=== PATIENT | male | born 1960 | race Caucasian/White ===

== ENCOUNTER 2016-06-03 11:59 | Inpatient (IN) | payer OTHER ==
--- NOTE | ~2016-06-03 | HP ---
History And Physical [place] [id number] [facility] [place]. [address] NAME: JARVIS HOOPER : 58 STATUS : ADM IN PAT#: [id number] AGE: 56 ADM/REG DATE : 06/03/16 MR#: [id number] REPORT SERV DATE: 06/03/16 DICTATED BY: DATE: REPORT STATUS : Draft TRANSCRIBED BY: MODL DATE: 06/03/16 DATE OF ADMISSION: 06/03/2016 REASON FOR ADMISSION: Severe dysphagia secondary to locally advanced esophageal cancer. Admission for J-tube and Port-A-Cath placement. POINT OF ENTRY: Direct admission from [facility] office, Dr. Marek Harris. PRIMARY CARE PHYSICIAN: Alternate providers at [facility]. PRIMARY ONCOLOGIST: Dr. Marek Harris, [facility]. PRIMARY CONTRACT CLERK: Dr. Isha Frye. PRIMARY UROLOGIST: Dr. Wood. HISTORY OF PRESENT ILLNESS: The patient's history was obtained through careful interview with the patient and his spouse coupled with review of office note, dated 05/31/2016, provided by Dr. Marek Harris at [facility]. Briefly, the patient is a 56-year-old male who is under the outpatient care of Dr. Marek Harris for evaluation and management of malignant neoplasm of the esophagus, new diagnosis. The patient underwent EGD on 05/28/2016, and an obstructing mass was found in the lower esophagus. Mass was biopsied and pathology returned as a moderately differentiated adenocarcinoma. Additional testing revealed HER-2/gabino positive. CT scan of the chest, abdomen, and pelvis were also performed on 05/28/2016. The esophageal mass was again noted along with indeterminate small pulmonary nodules of less than 1 cm and lymph node enlargement in lower chest and upper abdomen. Per review of [facility] notes, the patient has suffered from severe progressive dysphagia over at least one month and weight loss of approximately 20 pounds. The patient is barely able to take in a liquid diet. The patient was admitted to [facility] today for further evaluation and treatment to include placement of J-tube and Port-A-Cath. The patient reported progressive difficulty swallowing for at least one month. Swallowing at times is described as painful. The patient has also had increased symptoms of acid reflux. The patient stated that he has lost a significant amount of weight over the past month including a 10-pound weight loss within the past week. The patient reports his maximum weight to be 205 pounds one month ago, and weight today is 178 pounds. He is unable to consume solid foods and at times struggles to take in liquids. The patient History And Physical [address] [place]. [address] NAME: JARVIS HOOPER : 58 STATUS : ADM IN [facility]#: [id number] AGE: 56 ADM/REG DATE : 06/03/16 MR#: [id number] REPORT SERV DATE: 06/03/16 DICTATED BY: DATE: REPORT STATUS : Draft TRANSCRIBED BY: MODL DATE: 06/03/16 complains of mild intermittent nausea with occasional vomiting. The patient denies any recent choking episodes. REVIEW OF SYSTEMS: CONSTITUTIONAL: Positive for unintentional weight loss over past month. Maximum weight 205 pounds, the patient now weighing 178 pounds. Negative for fever, sweats, and chills. EYES: Positive for glasses. No blurred or double vision. No glaucoma. No cataracts. HEENT: Positive for chronic headache x2 weeks. No hearing loss. CARDIOVASCULAR: Positive for murmur, remote. Negative for chest pain, palpitations, syncope, and edema. RESPIRATORY: Positive for COPD with chronic bronchitis to include chronic productive cough and wheezing. No history of hemoptysis, shortness of breath, or pneumonia. GASTROINTESTINAL: Positive for intermittent nausea, last vomiting three days ago. Negative for abdominal pain and diarrhea. Last bowel movement was on Friday, status post bowel prep for colonoscopy. Positive for dysphagia, severe x1 month. MUSCULOSKELETAL: Positive for generalized joint pain. The patient relates to arthritis. INTEGUMENT: Negative for rash and nonhealing wounds. NEUROLOGIC: Positive for generalized weakness secondary to minimal p.o. intake. Negative for gait disturbance, stroke, TIA, and seizure. HEMATOLOGIC: Negative for anemia. PSYCHIATRIC: Positive for depression and anxiety. : Negative for dysuria and hematuria. Positive for history of nephrolithiasis. ENDOCRINE: Negative for diabetes and thyroid disease. ALLERGIES: NEGATIVE FOR ALLERGIES TO FOOD AND LATEX. PER REVIEW OF [facility] NOTE, NO KNOWN DRUG ALLERGIES. HEALTH MAINTENANCE: Flu and pneumonia vaccines are up to date. CODE STATUS: The patient expressed wishes to be a full code. HOME MEDICATIONS: Awaiting pharmacy reconciliation of home medication list. SOCIAL HISTORY: The patient resides with significant other. He has one biological daughter. He is an active tobacco user having smoked for approximately 30 years up until 2005. The patient smoked approximately two packs per day and is now smoking between one-half and one pack per day. The patient reports rare use of alcohol. 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 FAMILY HISTORY: The patient's mother is 73 years old with multiple health comorbidities. The patient's father at age 73 with a history of small cell lung cancer. The patient's paternal grandfather had a history of prostate cancer. Maternal grandmother had a history of unknown cancer. The patient has two siblings, in general good health. PAST MEDICAL HISTORY: 1. Malignant neoplasm of esophagus, new diagnosis as of 05/31/2016. 2. Severe dysphagia. History And Physical [address] [address] NAME: JARVIS HOOPER : 58 STATUS : ADM IN [facility]#: [id number] AGE: 56 ADM/REG DATE : 06/03/16 MR#: [id number] REPORT SERV DATE: 06/03/16 DICTATED BY: DATE: REPORT STATUS : Draft TRANSCRIBED BY: MODL DATE: 06/03/16 3. Depression and anxiety. 4. Unintentional weight loss. 5. Chronic bronchitis/COPD. 6. Diverticulitis. 7. Kidney stones. PAST SURGICAL HISTORY: 1. Right hand repair secondary to injury. 2. Two back surgeries, diskectomies in 1996 and approximately 12 years ago. 3. Kidney stone retrieval, 2009. 4. Tonsillectomy at age 15. ASSESSMENT AND PLAN: 1. Severe dysphagia. This is secondary to new diagnosis of an obstructing mass in the lower esophagus. Pathology returned as moderately differentiated adenocarcinoma. The patient continues to have dysphagia to solids and at times liquids. The patient reports painful swallowing at times. The patient is pending placement of J tube, so that he may begin tube feedings prior to treatment of esophageal cancer. The patient will receive clear liquids as tolerated, and then tube feedings will be started once PEG tube has been placed. 2. Unintentional weight loss. This is secondary to inability to tolerate solid food secondary to severe dysphagia. The patient has had significant weight loss over the past month having lost 10 pounds within the last week. Nutrition has been consulted for tube feeding and flush recommendations once J tube has been placed. Social Work has also been consulted for home health care at discharge to manage J tube and tube feedings. 3. Depression/anxiety. Per the patient, these conditions are controlled on home medications. Medication list is pending. The patient unable to recall names of home medications. These medications will be started inpatient once list as reconciled. 4. Esophageal cancer. This is a new diagnosis as of 05/31/2016. The patient is under the care of Dr. Harris at [facility]. Per review of [facility], this is an aggressive lower esophageal malignancy at least locally advanced disease. Two possible strategies for treatment are pending at this time to include neoadjuvant chemo radiation therapy followed by surgery for local disease versus palliative chemotherapy and radiation given sequentially for metastatic disease. 5. Chronic obstructive pulmonary disease/chronic bronchitis. The patient is up to date on influenza and pneumonia vaccine. The patient follows up with alternate providers at [facility]. The patient states he uses his medication to include a "puffer" only as needed. There were no signs or symptoms of acute exacerbation upon admission. PHYSICAL EXAMINATION: VITAL SIGNS: Temperature 99.4, pulse 69, blood pressure 127/77, respirations 20, oxygen saturation 96% on room air. NEUROLOGIC: The patient is alert with no focal deficits. GENERAL: The patient is a good health historian. Cooperative, awake, alert, and oriented x3. No apparent distress. History And Physical [address] [address] NAME: JARVIS HOOPER : 58 STATUS : ADM IN [facility]#: [id number] AGE: 56 ADM/REG DATE : 06/03/16 MR#: [id number] REPORT SERV DATE: 06/03/16 DICTATED BY: DATE: REPORT STATUS : Draft TRANSCRIBED BY: MODL DATE: 06/03/16 NECK: Posterior oropharynx is visible. No lesions or exudate. No lymphadenopathy. CHEST: No tenderness to palpation. LUNGS: Normal work of breathing at rest. Distant at bilateral bases. No wheezes. No rhonchi. CARDIOVASCULAR: Regular rate and rhythm. No murmurs, rubs, or gallops. ABDOMEN: Soft and nontender. No distention. Bowel sounds present in all quadrants. No organomegaly. EXTREMITIES: No edema to bilateral lower extremities. PSYCH: Normal affect and demonstrates good decision-making ability. The care of this patient will be transferred to the service of Dr. Josh Davis. NAPOLEON/STEVAN Colleen De La Torre NP-C / [id number] CC: Josh Davis II, MD
--- NOTE | ~2016-06-03 | DS ---
Discharge Summary [place] [id number] [facility] [place]. [address] NAME: JARVIS HOOPER : 58 STATUS : DIS IN PAT#: [id number] AGE: 56 ADM/REG DATE : 06/03/16 MR#: [id number] REPORT SERV DATE: 06/13/16 DICTATED BY: DATE: REPORT STATUS : Draft TRANSCRIBED BY: MODL DATE: 06/12/16 ADMISSION DATE: 06/03/2016 DISCHARGE DATE: 06/12/2016 DISCHARGE DIAGNOSES: 1. Constipation. 2. Severe dysphagia. 3. Unintentional weight loss. 4. Depression/anxiety. 5. Chronic obstructive pulmonary disease/chronic bronchitis. 6. Metastatic esophageal cancer. CONSULTATIONS: 1. Ulises Horton M.D., Surgery. 2. Bobo Adhikari M.D., Radiation Oncology. PERTINENT TESTS AND PROCEDURES: 1. Chest x-ray, 06/03/2016. Impression: No focal airspace consolidation or pleural effusion. No evidence of acute cardiopulmonary disease. 2. Chest x-ray, 06/05/2016. Impression: No pneumothorax postop. 3. PET scan whole body, 06/06/2016. Impression:. a. 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 The largest pulmonary nodule is 0.7 cm with mild FDG avidity. Other nodules are below resolution of PET. b. Pneumoperitoneum most likely due to recent J-tube insertion within last 48 hours. c. Three-vessel coronary artery atherosclerosis and/or stenting. d. Upper lobe predominant COPD with mild bibasilar atelectasis. e. Sigmoid colonic diverticulosis without diverticulitis. 4. Right subclavian Port-A-Cath placement with fluoroscopy and jejunal feeding tube placement, 06/05/2016. HOSPITAL COURSE: Please refer to history and physical dated 06/03/2016 provided by Colleen De La Torre, Nurse Practitioner, for complete details pertaining to the patient's initial presentation upon admission and health history. Please also refer to consultations dated 06/04/2016 and 06/07/2016, provided by Dr. Ulises Horton, Surgery, and Dr. Bobo Adhikari, Radiation Oncology. Please also refer to interim discharge summary dated 06/10/2016 provided by Allison Butt, Nurse Practitioner, for summary of events occurring between 06/03/2016 and 06/10/2016. Briefly, the patient is a 56-year-old male with a new diagnosis of an obstructing mass in the lower esophagus. Biopsy returned as moderately differentiated adenocarcinoma. The Discharge Summary [facility] [address] [place] [address] NAME: JARVIS HOOPER : 58 STATUS : DIS IN PAT#: [id number] AGE: 56 ADM/REG DATE : 06/03/16 MR#: [id number] REPORT SERV DATE: 06/13/16 DICTATED BY: DATE: REPORT STATUS : Draft TRANSCRIBED BY: MODL DATE: 06/12/16 patient is under the outpatient care of Dr. Marek Harris at [facility]. The patient was referred to [facility] for direct admission for management of severe progressive dysphagia in the setting of newly diagnosed metastatic esophageal cancer while waiting treatment to include placement of J-tube and Port-A-Cath. 1. Severe dysphagia. This is secondary to a new diagnosis of obstructing mass in the lower esophagus. Pathology returned as moderately differentiated adenocarcinoma. The patient can only tolerate a very small amount of thin liquids and small pills per oral intake. The patient had J-tube placed on 06/06/2016 and has now met goal rate tube feedings. 2. Unintentional weight loss. This is secondary to severe dysphagia related to metastatic esophageal cancer. The patient is unable to maintain nutritional status orally secondary to obstructing esophageal mass. The patient is now on tube feedings. The patient is receiving Osmolite 1.5 three cans delivered at 63 mL/h x12 hours via pump nightly in addition to three cans of Osmolite daily per bolus feed. Nutrition evaluated the patient during this admission and the patient was found to have severe malnutrition in the setting of chronic illness. The patient had insufficient energy intake less than 75% for one month in addition to greater than 5% unintentional weight loss within one month. 3. Constipation. This was likely related to recent surgery. The patient responded well to bowel regimen, and constipation is now resolved. The patient was educated on continuing outpatient bowel regimen at home to avoid constipation. 4. COPD/chronic bronchitis. The patient had no signs or symptoms of acute exacerbation during this admission. 5. Depression/anxiety. The patient condition remained baseline throughout this admission. The patient received Klonopin 0.5 mg p.o. three times daily and as needed, and was provided a two-week supply until he can return to his primary care office in June for re- evaluation and prescription refills. 6. Metastatic esophageal cancer. This is a new diagnosis. The patient is under the care of Dr. Harris at [facility] and Bobo Adhikari, Radiation Oncology. The patient is to start radiation therapy on an outpatient basis tomorrow. DISCHARGE CONDITION: At the time of discharge, the patient is hemodynamically stable. DISCHARGE DIET: P.O. liquids as tolerated. J-tube feedings as listed above. DISCHARGE MEDICATIONS: 1. Vitamin C 100 mg chewable tablet p.o. daily. 2. Celexa 20 mg tablet, take 40 mg p.o. daily. 3. Reglan 10 mg p.o. every 8 hours as needed x2 weeks. 4. Tylenol 325 mg tablet, take 650 mg p.o. every 4 hours as needed for pain. 5. Milk of magnesia 30 mL as needed at bedtime. 6. Zofran 8 mg tablet p.o. every 8 hours as needed. 7. Mylicon 80 mg p.o. every 6 hours as needed. 8. Klonopin 0.5 mg tablet p.o. three times a day as needed for anxiety. The patient was provided with a two-week prescription to cover days before followup visit with primary care physician. 9. Multiple vitamin one tablet p.o. daily. Discharge Summary [address] [address] NAME: JARVIS HOOPER : 58 STATUS : DIS IN PAT#: [id number] AGE: 56 ADM/REG DATE : 06/03/16 MR#: [id number] REPORT SERV DATE: 06/13/16 DICTATED BY: DATE: REPORT STATUS : Draft TRANSCRIBED BY: MODL DATE: 06/12/16 10.MiraLAX 17 g p.o. daily, hold for diarrhea. DISCHARGE INSTRUCTIONS: 1. Follow up with primary care physician, Dr. Suni Silva at [facility] on 06/24/2016 at 2:00 p.m. 2. The patient is to follow up with Dr. Harris, [facility], on 06/18/2016 at 1:00 p.m. The patient and his spouse were instructed to return to the emergency department for any acute onset of fever 100.4 degrees Fahrenheit or higher lasting more than one hour, any acute changes with the newly placed J-tube to include inability to flush or administer feedings, increased shortness of breath, intractable abdominal pain, nausea, vomiting, or any additional concerns that are deviations from his baseline health status at the time of this discharge. PRIMARY CARE PHYSICIAN: Marek Harris M.D., [facility]. PRIMARY RADIATION ONCOLOGIST: Bobo Adhikari M.D. JWH/STEVAN AIME Ibarra / [id number] CC: Josh Davis II, MD
--- NOTE | ~2016-06-03 | IDS ---
Interim Discharge Summary [facility] [address] [place]. [address] NAME: JARVIS HOOPER : 58 STATUS : ADM IN [facility]#: [id number] AGE: 56 ADM/REG DATE : 06/03/16 MR#: [id number] REPORT SERV DATE: 06/10/16 DICTATED BY: JEWEL BUTT DATE: 06/10/16 REPORT STATUS : Draft TRANSCRIBED BY: MODL DATE: 06/10/16 ADMISSION DATE: 06/03/2016 DISCHARGE DATE: DATE OF INTERIM NOTE: Date of interim note is covering 06/04/2016. INTERIM DIAGNOSES: 1. Severe dysphagia, secondary to #3. 2. Unintentional weight loss, secondary #3. 3. Esophageal cancer. 4. Depression and anxiety. 5. Tobacco abuse. 6. History of chronic obstructive pulmonary disease/chronic bronchitis. CONSULTATIONS: 1. Surgery, Dr. Horton on 06/04/2016. 2. Radiation Oncology, Dr. Adhikari on 06/07/2016. IMAGIN. Chest x-ray on 06/03/2016, impression, no evidence of acute cardiopulmonary disease. 2. Chest x-ray, on 06/05/2016, impression, minimal atelectasis in the left lung base, due to low volume levels. 3. PET scan on 06/06/2016, impression, mass suggestive of stage IV gastroesophageal carcinoma with 5 x 4 cm GE junction with gastric cardia mass, multiple FDG avid, celiac, and retroperitoneal lymph nodes, with numerous bilateral subcentimeter pulmonary nodules. The largest pulmonary nodule is 0.7 cm with mild FDG activity or avidity. Other nodules are below the resolution of PET. 4. On 06/05/2016, right subclavian Port-A-Cath placement with fluoroscopy and jejunal feeding tube placement by Dr. Horton. COURSE OF HOSPITAL STAY: Please refer to history and physical dictated by Colleen De La Torre, nurse practitioner on 06/03/2016, as well as consultation note by Dr. Horton, and Dr. Adhikari. This patient is a 56-year-old gentleman, who presents with a history of esophageal cancer. He is under the care Dr. Harris. The patient was admitted for severe progressive dysphagia. Dr. Horton was consulted for J-tube and Port-A-Cath placement. 1. Severe dysphagia secondary to #3. The patient has had difficulty swallowing over the past month. He does state that he has had approximately 10 pound weight loss over the past week. The patient has been able to take only very small sips of liquid, unable to make calorie intake. Dr. Horton was consulted to see the patient regarding J-tube placement and Port-A-Cath placement. He did undergo the procedure on 06/05/2016. 2. Unintentional weight loss, secondary to #3. J-tube was placed on 06/05/2016. Feedings have progressed very slowly, due to bloating and abdominal discomfort. At this time, the patient feedings are at 30 mL an hour. Nutrition has been reconsulted to see regarding nocturnal feeds versus bolus feeds. The patient has been adamant regarding being able to discharge home as quickly as possible. This was reviewed with Venus Martinez Interim Discharge Summary [address] [place]. [address] NAME: JARVIS HOOPER : 58 STATUS : ADM IN [facility]#: [id number] AGE: 56 ADM/REG DATE : 06/03/16 MR#: [id number] REPORT SERV DATE: 06/10/16 DICTATED BY: JEWEL BUTT DATE: 06/10/16 REPORT STATUS : Draft TRANSCRIBED BY: STEVAN DATE: 06/10/16 Clifford nurse. The complains of bloating, and has decreased due to starting Reglan and simethicone. Again at this time, the patient is tolerating tube feeds at 30 mL an hour. This will be increased every eight hours depending on nutrition's recommendation. Per Dr. Horton, okay to discharge home and continue increase tube feeds as tolerated. 3. Esophageal cancer. The patient is under the care of Dr. Harris. The patient did undergo a PET-CT which is noted above on 06/06/2016. It is planned for palliative chemo as well as radiation. The patient has had evaluation by Dr. Adhikari. Radiation may begin this afternoon. 4. Depression and anxiety. The patient has been continued on home medications and is at baseline. 5. Tobacco abuse. The patient does state that he had continued to smoke, he has discontinued to use, he is using a nicotine patch at this time. 6. History of COPD/chronic bronchitis. The patient has remained stable without difficulty. DISPOSITION: The patient has been working with dependency case manager regarding supplies and Home Health. This has been arranged, the patient has feedings and pump which have been delivered. He will follow up outpatient with Dr. Harris upon discharge, as well as Dr. Adhikari. Discharge home within the next day or two. GIA/STEVAN Jewel Butt NP / [id number]
--- NOTE | ~2016-06-03 | CONSULT ---
Radiation Oncology Consult [address] [address] NAME: JARVIS SANDS : 58 STATUS : ADM IN PAT#: [id number] AGE: 56 ADM/REG DATE : 06/03/16 MR#: [id number] REPORT SERV DATE: 06/07/16 DICTATED BY: LOI ADHIKARI DATE: 06/07/16 REPORT STATUS : Draft TRANSCRIBED BY: MODL DATE: 06/07/16 RADIATION ONCOLOGY CONSULTATION CHIEF COMPLAINT: Esophageal carcinoma. HISTORY OF PRESENT ILLNESS: Mr. Sands is a pleasant 56-year-old gentleman, who presented with a 20-pound weight loss and progressive dysphagia. EGD completed 05/28/2016 showed an obstructing mass in the lower esophagus. Biopsy returned as moderately differentiated adenocarcinoma. CTs of the chest, abdomen, and pelvis on 05/28/2016 showed the esophageal mass with indeterminate small pulmonary nodules and lymph node enlargement in the upper abdomen. He was seen by Dr. Harris, who recommended a PET-CT and was subsequently hospitalized for J-tube placement. This has now been completed along with the PET-CT. PET- CT has not been read at this time, but upon my review shows a large GE junction mass with upper abdominal lymphadenopathy and a questionable lesion in the liver on the FDG MIP. I will await the final read from Radiology as to whether this is concerning. Symptomatically, Mr. Sands is resting comfortably and is currently tolerating tube feeds at a fairly slow rate. PAST MEDICAL HISTORY: Unremarkable. ALLERGIES: NO KNOWN DRUG ALLERGIES. MEDICATIONS: Medication list reviewed with the patient including the patient's chart. SOCIAL HISTORY: The patient is . Lives in [place]. He has recently quit smoking with this diagnosis after smoking one pack a day for 30 years. He does drink alcohol on a regular basis. FAMILY HISTORY: Small cell lung cancer in father. Paternal grandfather with prostate cancer. FULL REVIEW OF SYSTEMS: A comprehensive review of systems was discussed in detail. Mr. Sands' pertinent positives and negatives are included above in the history of present illness. PHYSICAL EXAMINATION: GENERAL: The patient is awake, alert, oriented, in no acute distress. VITAL SIGNS: Afebrile. Vital signs stable. HEENT: Extraocular movements are intact. Sclerae anicteric. Oral cavity is benign without erythema. NECK: Supple. No thyromegaly. LYMPHATICS: No cervical, supraclavicular, or axillary lymphadenopathy palpated. LUNGS: Clear to auscultation bilaterally. Appropriate work of breathing. HEART: Regular rate. Normal sinus rhythm. No murmurs, rubs, or gallops. ABDOMEN: Soft, nontender, nondistended. No hepatosplenomegaly. No apparent hernias. Radiation Oncology Consult [address] [address] NAME: JARVIS SANDS : 58 STATUS : ADM IN PAT#: [id number] AGE: 56 ADM/REG DATE : 06/03/16 MR#: [id number] REPORT SERV DATE: 06/07/16 DICTATED BY: LOI ADHIKARI DATE: 06/07/16 REPORT STATUS : Draft TRANSCRIBED BY: STEVAN DATE: 06/07/16 EXTREMITIES: No cyanosis, clubbing, or edema. SKIN: No rashes. No obvious jaundice. LABORATORIES AND OTHER DATA: Imaging and pathology as described above showing a locally advanced esophageal adenocarcinoma. ASSESSMENT/PLAN: A 56-year-old gentleman with at least a locally advanced esophageal adenocarcinoma. Official read from the PET-CT is pending. No obvious metastatic disease is noted per my review, although there is some suspicious activity in the anterior apex of the liver and in a few thoracic vertebral bodies. Final radiograph agreed to be necessary for staging. If Mr. Sands is deemed to be nonmetastatic, I would recommend concurrent chemotherapy and radiation treating the areas of gross disease including the GE junction mass and the upper abdominal lymphadenopathy to 5040 cGy in 28 fractions with concurrent chemotherapy. If he is found to have metastatic disease, I agree a short course of palliative radiation therapy would help with his dysphagia and can be followed by systemic chemotherapy. I plan to follow up with Mr. Sands early next week to make final treatment recommendations and will be in contact with Dr. Harris. I discussed both treatment approaches in detail with Mr. Sands and his and will stay in touch as we await final staging. JOYCE/STEVAN Loi Adhikari M.D. / [id number] CC: Itz Carrion MD NO PCP Marek Harris M.D.
--- NOTE | ~2016-06-03 | OP ---
Record Of Operation [facility] [address] [place]. [address] NAME: JARVIS HOOPER : 58 STATUS : ADM IN [facility]#: [id number] AGE: 56 ADM/REG DATE : 06/03/16 MR#: [id number] REPORT SERV DATE: 06/06/16 DICTATED BY: RONNY BRADSHAW III DATE: 06/05/16 REPORT STATUS : Draft TRANSCRIBED BY: MODL DATE: 06/05/16 DATE OF PROCEDURE: 06/03/2016 PREOPERATIVE DIAGNOSES: Obstructing adenocarcinoma of the distal esophagus with malnutrition and need for chronic IV access for chemotherapy. POSTOPERATIVE DIAGNOSES: Obstructing adenocarcinoma of the distal esophagus with malnutrition and need for chronic IV access for chemotherapy. PROCEDURE: Right subclavian Port-A-Cath placement with fluoroscopy and jejunal feeding tube placement. SURGEON: Ronny Bradshaw M.D. ANESTHESIA: General with intubation. COMPLICATIONS: None. ESTIMATED BLOOD LOSS: Less than 5 mL. SPECIMENS: None. DRAINS: None. LAP AND SPONGE COUNT: Correct x3. BRIEF HISTORY: This 56-year-old male was recently diagnosed with a large obstructing cancer of the distal esophagus. His workup showed no evidence for metastatic disease. It was felt that neoadjuvant chemotherapy and radiation therapy were indicated. It was felt that Port-A Cath placement was also indicated to allow for chronic IV access for chemotherapy and jejunal feeding tube placement was indicated to allow for enteral nutrition as the patient was nearly completely obstructed. These procedures, the risks, benefits, and alternatives, including not limited to the risk for bleeding, infection, pneumothorax, air embolus, pericardial tamponade, failure of the port to function, infection of the port, or subclavian vein thrombosis requiring removal the port, dislodgement of the Port-A-Cath tubing requiring extraction, and unforeseen complications including deep venous thrombosis, pulmonary embolus, myocardial infarction, stroke, pneumonia, and , were fully and completely explained to the patient prior to surgery. The risk for enterotomy or injury to any abdominal structure, postop small bowel obstruction, ileus, failure of the feeding tube to function, infection of the tube or drainage around the tube or occlusion of the tube requiring revision or replacement, and unforeseen complications including deep venous thrombosis, pulmonary embolus, myocardial infarction, stroke, pneumonia, and , were fully and completely explained to the patient's family prior to surgery. Their questions were answered. They understood the risks and agreed to surgery as planned. DESCRIPTION OF PROCEDURE: After being properly identified and after discussing risks of Record Of Operation [place] [id number] [facility] [address] [place] [address] NAME: JARVIS HOOPER : 58 STATUS : ADM IN PAT#: [id number] AGE: 56 ADM/REG DATE : 06/03/16 MR#: [id number] REPORT SERV DATE: 06/06/16 DICTATED BY: RONNY BRADSHAW III DATE: 06/05/16 REPORT STATUS : Draft TRANSCRIBED BY: STEVAN DATE: 06/05/16 surgery with the patient's family again in the preoperative area, he was then taken to the operating room and placed in a supine position on the operating room table. General anesthesia was administered. He was intubated without difficulty. The abdomen and chest were prepped and draped sterilely in the usual fashion. After an appropriate "time-out" per JCAHO standards, an 18-gauge needle was used to identify the right subclavian vein. The vein was identified on the first pass of the needle. A guidewire was passed through the needle, and the needle was removed. Fluoroscopy was performed, confirming the tip of the guidewire to be in the correct position in the superior vena cava. A small transverse incision was then made at the exit site of the guidewire from the skin. A subcutaneous infraclavicular pocket was made of the appropriate size for the Port-A-Cath housing. The Port-A-Cath housing and tubing were assembled, flushed with a heparin solution and the tubing cut to the appropriate length. The introducer was then placed over the guidewire. The guidewire and inner dilator were removed. The Port-A-Cath tubing was then placed through the sheath as the sheath was peeled away. This went very smoothly. The Port-A-Cath housing was positioned in the infraclavicular pocket. It was secured in place with 2-0 silk sutures. It was accessed with a Nunez needle and noted to aspirate blood easily. It was then flushed with a heparin solution, noted to flush easily. Repeat fluoroscopy was performed, confirming the tip of the Port-A-Cath tubing to be in the correct position of superior vena cava. Hemostasis was assured. The subcutaneous tissue was closed with a running 3-0 Vicryl suture. The skin was closed with running subcuticular 4-0 Monocryl stitch. The incision was injected with 0.5% Marcaine. Dermabond was applied. We then turned our attention to the abdomen. A small vertical incision was made in the midline of the abdomen midway between the umbilicus and xiphoid process. The incision was continued through the subcutaneous tissue. Hemostasis was controlled with cautery. The incision was continued through the fascia. The abdominal cavity was entered. There was no evidence for carcinomatosis or peritoneal implants. We identified the ligament of Treitz. The proximal jejunum just beyond this was selected for placement of the feeding tube. A #14 Zimbabwean jejunal feeding tube was placed through a separate stab wound to the left of the incision. A 3-0 silk pursestring was then placed on the antimesenteric border of the proximal small bowel which had been selected for placing the feeding tube. A small opening was made in the center of the pursestring, and the feeding tube was passed through this and passed distally. The balloon was inflated. The pursestring was secured. The exit site of the feeding tube from the jejunum was then secured in a Witzel fashion with interrupted 3-0 silk sutures. This new exit site was secured to the underside of the abdominal wall with 3- 0 silk sutures. Upon completion of this, the catheter lay in good position. The small bowel was inspected carefully to be certain it was not twisted or kinked in any way. Hemostasis was assured. The fascia was closed with a running looped #1 PDS suture. Subcutaneous tissue was closed with running 3-0 chromic suture. The skin was closed with running subcuticular 4-0 Monocryl stitch. The incision was injected with 0.5% Marcaine. Dressings were applied. Anesthesia was reversed, and the patient was taken to the recovery room in stable condition, tolerated the procedure well. Chest x-ray is pending in recovery room. The patient will remain in the hospital for postoperative care. APRIL/STEVAN Record [place] [address] [place]. [address] NAME: JARVIS HOOPER : 58 STATUS : ADM IN PAT#: [id number] AGE: 56 ADM/REG DATE : 06/03/16 MR#: [id number] REPORT SERV DATE: 06/06/16 DICTATED BY: RONNY BRADSHAW III DATE: 06/05/16 REPORT STATUS : Draft TRANSCRIBED BY: MODL DATE: 06/05/16 Ronny Bradshaw III, M.D. / [id number] CC: Itz Carrion MD
--- NOTE | ~2016-06-03 | CN ---
Consultation Report [place] [id number] [facility] [place]. [address] NAME: JARVIS HOOPER : 58 STATUS : ADM IN [facility]#: [id number] AGE: 56 ADM/REG DATE : 06/03/16 MR#: [id number] REPORT SERV DATE: 06/04/16 DICTATED BY: RONNY BRADSHAW III DATE: 06/04/16 REPORT STATUS : Draft TRANSCRIBED BY: MODDmitri DATE: 06/04/16 CONSULTATION DATE OF CONSULTATION: 06/04/2016 ATTENDING PHYSICIAN: Marek Harris M.D. REASON FOR CONSULT: 1. Esophageal cancer. 2. Evaluation for surgical management. HISTORY OF PRESENT ILLNESS: We were asked to see this 56-year-old male in the hospital for the above reasons. The patient has been recently diagnosed with a distal adenocarcinoma of the esophagus. The patient complains of severe dysphagia. Over the last month or so, the patient has had difficulty swallowing. He has developed severe dysphagia, which has become progressively worse. This is associated with a 20-pound weight loss over the last month. The patient is now able to tolerate liquids only. The patient has had no nausea or vomiting. He has had no blood per rectum. He has had no other complaints. The patient underwent upper endoscopy last week, which showed a large complete obstructing mass in the distal esophagus. Biopsy confirmed this to be adenocarcinoma. Neoadjuvant chemotherapy and radiation therapy are planned to begin this Friday. PET scan is pending. The patient's recent CT scan shows regional adenopathy, but no evidence for distant metastatic disease. PAST MEDICAL HISTORY: 1. COPD. 2. Depression. 3. History of diverticulitis. 4. History of anxiety. PAST SURGICAL HISTORY: Includes back surgery, hand surgery, kidney stone removal, and tonsillectomy. SOCIAL HISTORY: The patient lives with significant other. He has a history of tobacco abuse. He has no history of alcohol or illicit drug use. ALLERGIES: NONE. MEDICATIONS: Celexa, vitamins, Klonopin, Zofran, vitamin C, and ibuprofen. FAMILY HISTORY: Positive for prostate cancer. PHYSICAL EXAMINATION: GENERAL: This is a male, in no acute distress. He is alert and oriented x3. VITAL SIGNS: Blood pressure 130/71, pulse 62, and temperature 97.6. Consultation Report [place] [id number] [facility] [place]. [address] NAME: JARVIS HOOPER : 58 STATUS : ADM IN PAT#: [id number] AGE: 56 ADM/REG DATE : 06/03/16 MR#: [id number] REPORT SERV DATE: 06/04/16 DICTATED BY: RONNY BRADSHAW III DATE: 06/04/16 REPORT STATUS : Draft TRANSCRIBED BY: MODL DATE: 06/04/16 HEENT: Unremarkable. Cranial nerves 2 through 12 are normal. NECK: Unremarkable. No adenopathy. LUNGS: Clear. CARDIAC: Normal. ABDOMEN: Soft. Nontender. No masses. LABORATORY DATA: Hematocrit 41. CT scan of the abdomen, pelvis, and chest performed at [facility] shows a large esophageal mass with regional adenopathy. ASSESSMENT: 1. A 56-year-old male with large distal esophageal carcinoma, with near complete obstruction. 2. Weight loss secondary to #1. 3. Tobacco abuse. 4. Chronic obstructive pulmonary disease secondary to tobacco abuse. PLAN: The patient needs a Port-A-Cath placement and jejunal feeding tube placement to allow for enteral nutrition and IV access. We will begin chemotherapy and radiation therapy this week under Dr. Harris's directions. The patient will then be evaluated for definitive surgery once he has completed his neoadjuvant therapy. His candidacy for definitive surgery will depend on his compliance with smoking cessation and his response to therapy and whether or not he has evidence for distant disease following his chemotherapy and radiation therapy. We will schedule the patient for Port-A-Cath placement tomorrow and jejunal feeding tube placement. These procedures, the risks, benefits, and alternatives, including not limited to the risk for bleeding, infection, pneumothorax, air embolus, pericardial tamponade, failure of the port to function, infection of the port or subclavian vein thrombosis requiring removal, dislodgement of the Port-A-Cath tubing requiring extraction, enterotomy, injury to abdominal structure, postop small bowel obstruction, ileus, incisional hernia, dehiscence, or migration of the feeding tube, leakage around the feeding tube, occlusion or dysfunction requiring revision or replacement, and unforeseen complications including deep venous thrombosis, pulmonary embolus, myocardial infarction, stroke, pneumonia, and , have been fully explained to the patient and family. Their questions were answered. They understand the risks and agreed to surgery as planned. [facility]/STEVAN Ronny Bradshaw III, M.D. / [id number] Consultation Report [address] [address] NAME: JARVIS HOOPER : 58 STATUS : ADM IN PAT#: [id number] AGE: 56 ADM/REG DATE : 06/03/16 MR#: [id number] REPORT SERV DATE: 06/04/16 DICTATED BY: RONNY BRADSHAW III DATE: 06/04/16 REPORT STATUS : Draft TRANSCRIBED BY: STEVAN DATE: 06/04/16 CC: Josh Davis II, MD NO PCP
[~2016-06-03 11:59] MED LIST: CELEXA20 PO; CIP5 PO; DIOV160 PO; MULTIPLE VIT PO; PERCOCET PO; PHENERGAN 2525 MG/M1 PO; TRAZ50 PO
[2016-06-03 16:13] LABS: BASOPHILS 0.9 %; BASOPHILS ABSOLUTE 0.06 10/3/uL (0.0-0.16); EOSINOPHILS 3.2 %; EOSINOPHILS ABSOLUTE 0.21 10/3/uL (0.0-0.53); HEMATOCRIT 41.9 % (40.0-51.0); HEMOGLOBIN 14.4 g/dL (13.6-17.8); IMMATURE GRANULOCYTES 0.2 %; IMMATURE GRANULOCYTES ABSOLUTE 0.01 10/3/uL (0.0-0.11); LYMPHOCYTES 33.4 %; LYMPHOCYTES ABSOLUTE 2.18 10/3/uL (0.67-4.30); MEAN CORPUS HGB CONC 34.4 g/dL (32.0-36.0); MEAN CORPUSCULAR HEMOGLOB 32.2 pg (26.0-34.0); MEAN CORPUSCULAR VOLUME 93.7 fL (80-100); MEAN PLATELET VOLUME 9.7 fL (9.2-13.0); MONOCYTES 8.7 %; MONOCYTES ABSOLUTE 0.57 10/3/uL (0.21-1.20); NEUTROPHILS 53.6 %; PLATELET COUNT 218 10/3/uL (150-400); RBC DISTRIBUTION WIDTH 13.2 % (12.0-16.0); RED CELL COUNT 4.47 10/6/uL (4.7-6.1)
[2016-06-03 16:14] LABS: MANUAL DIFF NO %; WHITE BLOOD CELLS 6.5 10/3/uL (4.5-10.5)
[2016-06-03 16:31] LABS: ALBUMIN 3.6 G/DL (3.5-5.0); BUN (BLOOD UREA NITROGEN) 11 MG/DL (6-23); CALCIUM, SERUM 9.3 MG/DL (8.5-10.4); CHLORIDE, SERUM 106 MMOL/L (96-112); CO2 (CARBON DIOXIDE) 27 MMOL/L (24-34); CREATININE 0.93 MG/DL (0.70-1.30); GFR AFRICAN AMERICAN 105 ML/MIN (>=60); GFR NON AFRICAN AMERICAN 91 ML/MIN (>=60); GLOBULIN 3.7 G/DL (2.5-4.1); GLUCOSE, SERUM 84 MG/DL (60-99); POTASSIUM, SERUM 4.1 MMOL/L (3.5-5.3); SGOT(AST) 11 U/L (5-40); SGPT(ALT) 11 U/L (5-65); SODIUM, SERUM 142 MMOL/L (135-148); TOTAL BILIRUBIN 0.4 MG/DL (0-1.2); TOTAL PROTEIN 7.3 G/DL (6.0-8.5)
[2016-06-03 16:32] LABS: ALKALINE PHOSPHATASE 70 U/L (45-117)
[2016-06-03] MEDS ORDERED: ENDOCET1 TA1 PO (16:38)
[2016-06-03] MEDS ORDERED: ZOFRAN8 PO (16:39)
[2016-06-03] MEDS ORDERED: KLONO5 PO (16:40)
[2016-06-03] MEDS ORDERED: HERBAL (16:43)
[2016-06-03] MEDS ORDERED: T PO (16:44)
[2016-06-03] MEDS ORDERED: ADVIL PO (16:45)
[2016-06-03] MEDS ORDERED: VITAMIN C100 M1 PO (16:46)
[2016-06-04 04:54] LABS: BASOPHILS 0.9 %; BASOPHILS ABSOLUTE 0.05 10/3/uL (0.0-0.16); EOSINOPHILS 5.2 %; EOSINOPHILS ABSOLUTE 0.29 10/3/uL (0.0-0.53); HEMATOCRIT 40.3 % (40.0-51.0); HEMOGLOBIN 13.6 g/dL (13.6-17.8); LYMPHOCYTES 43.8 %; LYMPHOCYTES ABSOLUTE 2.43 10/3/uL (0.67-4.30); MANUAL DIFF NO %; MEAN CORPUS HGB CONC 33.7 g/dL (32.0-36.0); MEAN CORPUSCULAR HEMOGLOB 32.1 pg (26.0-34.0); MEAN PLATELET VOLUME 9.6 fL (9.2-13.0); MONOCYTES 11.4 %; MONOCYTES ABSOLUTE 0.63 10/3/uL (0.21-1.20); NEUTROPHILS 38.7 %; NEUTROPHILS ABSOLUTE 2.15 10/3/uL (2.02-8.40); PLATELET COUNT 201 10/3/uL (150-400); RED CELL COUNT 4.24 10/6/uL (4.7-6.1); WHITE BLOOD CELLS 5.6 10/3/uL (4.5-10.5)
[2016-06-04 05:11] LABS: BUN (BLOOD UREA NITROGEN) 10 MG/DL (6-23); CALCIUM, SERUM 8.5 MG/DL (8.5-10.4); CHLORIDE, SERUM 109 MMOL/L (96-112); CO2 (CARBON DIOXIDE) 28 MMOL/L (24-34); CREATININE 0.94 MG/DL (0.70-1.30); GFR AFRICAN AMERICAN 104 ML/MIN (>=60); GFR NON AFRICAN AMERICAN 90 ML/MIN (>=60); GLUCOSE, SERUM 98 MG/DL (60-99); POTASSIUM, SERUM 4.9 MMOL/L (3.5-5.3); SODIUM, SERUM 142 MMOL/L (135-148)
[2016-06-06 04:50] LABS: BASOPHILS 0.3 %; BASOPHILS ABSOLUTE 0.03 10/3/uL (0.0-0.16); EOSINOPHILS 0.9 %; EOSINOPHILS ABSOLUTE 0.09 10/3/uL (0.0-0.53); HEMATOCRIT 38.9 % (40.0-51.0); HEMOGLOBIN 13.5 g/dL (13.6-17.8); IMMATURE GRANULOCYTES 0.2 %; IMMATURE GRANULOCYTES ABSOLUTE 0.02 10/3/uL (0.0-0.11); LYMPHOCYTES 20.5 %; LYMPHOCYTES ABSOLUTE 2.09 10/3/uL (0.67-4.30); MANUAL DIFF NO %; MEAN CORPUS HGB CONC 34.7 g/dL (32.0-36.0); MEAN CORPUSCULAR HEMOGLOB 32.1 pg (26.0-34.0); MEAN CORPUSCULAR VOLUME 92.4 fL (80-100); MEAN PLATELET VOLUME 9.3 fL (9.2-13.0); MONOCYTES 9.9 %; MONOCYTES ABSOLUTE 1.01 10/3/uL (0.21-1.20); NEUTROPHILS 68.2 %; NEUTROPHILS ABSOLUTE 6.96 10/3/uL (2.02-8.40); PLATELET COUNT 194 10/3/uL (150-400); RED CELL COUNT 4.21 10/6/uL (4.7-6.1); WHITE BLOOD CELLS 10.2 10/3/uL (4.5-10.5)
[2016-06-06 05:14] LABS: BUN (BLOOD UREA NITROGEN) 8 MG/DL (6-23); CALCIUM, SERUM 8.6 MG/DL (8.5-10.4); CHLORIDE, SERUM 103 MMOL/L (96-112); CO2 (CARBON DIOXIDE) 26 MMOL/L (24-34); CREATININE 0.88 MG/DL (0.70-1.30); GFR AFRICAN AMERICAN 111 ML/MIN (>=60); GFR NON AFRICAN AMERICAN 95 ML/MIN (>=60); POTASSIUM, SERUM 4.1 MMOL/L (3.5-5.3); SODIUM, SERUM 138 MMOL/L (135-148)
[2016-06-06 05:19] LABS: GLUCOSE, SERUM 130 MG/DL (60-99)
[2016-06-08 05:20] LABS: BASOPHILS 0.4 %; BASOPHILS ABSOLUTE 0.03 10/3/uL (0.0-0.16); EOSINOPHILS 3.9 %; EOSINOPHILS ABSOLUTE 0.32 10/3/uL (0.0-0.53); HEMOGLOBIN 14.7 g/dL (13.6-17.8); IMMATURE GRANULOCYTES 0.2 %; IMMATURE GRANULOCYTES ABSOLUTE 0.02 10/3/uL (0.0-0.11); LYMPHOCYTES 22.3 %; LYMPHOCYTES ABSOLUTE 1.82 10/3/uL (0.67-4.30); MEAN CORPUS HGB CONC 33.7 g/dL (32.0-36.0); MEAN CORPUSCULAR HEMOGLOB 31.5 pg (26.0-34.0); MEAN CORPUSCULAR VOLUME 93.4 fL (80-100); MEAN PLATELET VOLUME 9.9 fL (9.2-13.0); MONOCYTES 11.9 %; MONOCYTES ABSOLUTE 0.97 10/3/uL (0.21-1.20); NEUTROPHILS 61.3 %; PLATELET COUNT 219 10/3/uL (150-400); RBC DISTRIBUTION WIDTH 13.1 % (12.0-16.0); RED CELL COUNT 4.67 10/6/uL (4.7-6.1); WHITE BLOOD CELLS 8.2 10/3/uL (4.5-10.5)
[2016-06-08 05:22] LABS: HEMATOCRIT 43.6 % (40.0-51.0); MANUAL DIFF NO %
[2016-06-08 05:30] LABS: BUN (BLOOD UREA NITROGEN) 9 MG/DL (6-23); CALCIUM, SERUM 9.1 MG/DL (8.5-10.4); CHLORIDE, SERUM 102 MMOL/L (96-112); CO2 (CARBON DIOXIDE) 27 MMOL/L (24-34); CREATININE 0.85 MG/DL (0.70-1.30); GFR AFRICAN AMERICAN 112 ML/MIN (>=60); GFR NON AFRICAN AMERICAN 97 ML/MIN (>=60); POTASSIUM, SERUM 4.3 MMOL/L (3.5-5.3); SODIUM, SERUM 138 MMOL/L (135-148)
[2016-06-08 05:36] LABS: GLUCOSE, SERUM 99 MG/DL (60-99)
[2016-06-10 04:44] LABS: BASOPHILS 0.9 %; BASOPHILS ABSOLUTE 0.06 10/3/uL (0.0-0.16); EOSINOPHILS 5.1 %; EOSINOPHILS ABSOLUTE 0.34 10/3/uL (0.0-0.53); IMMATURE GRANULOCYTES 0.3 %; IMMATURE GRANULOCYTES ABSOLUTE 0.02 10/3/uL (0.0-0.11); LYMPHOCYTES 29.4 %; LYMPHOCYTES ABSOLUTE 1.95 10/3/uL (0.67-4.30); MEAN CORPUS HGB CONC 34.1 g/dL (32.0-36.0); MEAN CORPUSCULAR HEMOGLOB 31.7 pg (26.0-34.0); MEAN CORPUSCULAR VOLUME 92.8 fL (80-100); MEAN PLATELET VOLUME 9.4 fL (9.2-13.0); MONOCYTES 12.2 %; MONOCYTES ABSOLUTE 0.81 10/3/uL (0.21-1.20); NEUTROPHILS 52.1 %; NEUTROPHILS ABSOLUTE 3.46 10/3/uL (2.02-8.40); PLATELET COUNT 211 10/3/uL (150-400); RED CELL COUNT 4.42 10/6/uL (4.7-6.1); WHITE BLOOD CELLS 6.6 10/3/uL (4.5-10.5)
[2016-06-10 04:47] LABS: MANUAL DIFF NO %
[2016-06-10 05:04] LABS: BUN (BLOOD UREA NITROGEN) 8 MG/DL (6-23); CHLORIDE, SERUM 102 MMOL/L (96-112); CO2 (CARBON DIOXIDE) 28 MMOL/L (24-34); CREATININE 0.73 MG/DL (0.70-1.30); GFR AFRICAN AMERICAN 119 ML/MIN (>=60); GFR NON AFRICAN AMERICAN 103 ML/MIN (>=60); GLUCOSE, SERUM 117 MG/DL (60-99); POTASSIUM, SERUM 3.8 MMOL/L (3.5-5.3); SODIUM, SERUM 139 MMOL/L (135-148)
[2016-06-12 04:18] LABS: BASOPHILS ABSOLUTE 0.07 10/3/uL (0.0-0.16); EOSINOPHILS 5.7 %; HEMATOCRIT 41.3 % (40.0-51.0); HEMOGLOBIN 14.3 g/dL (13.6-17.8); IMMATURE GRANULOCYTES 0.1 %; IMMATURE GRANULOCYTES ABSOLUTE 0.01 10/3/uL (0.0-0.11); LYMPHOCYTES ABSOLUTE 2.16 10/3/uL (0.67-4.30); MEAN CORPUS HGB CONC 34.6 g/dL (32.0-36.0); MEAN CORPUSCULAR VOLUME 92.4 fL (80-100); MEAN PLATELET VOLUME 9.3 fL (9.2-13.0); MONOCYTES 10.9 %; MONOCYTES ABSOLUTE 0.76 10/3/uL (0.21-1.20); NEUTROPHILS 51.3 %; NEUTROPHILS ABSOLUTE 3.57 10/3/uL (2.02-8.40); PLATELET COUNT 236 10/3/uL (150-400); RBC DISTRIBUTION WIDTH 12.6 % (12.0-16.0); RED CELL COUNT 4.47 10/6/uL (4.7-6.1)
[2016-06-12 04:19] LABS: MANUAL DIFF NO %
[2016-06-12 04:34] LABS: BUN (BLOOD UREA NITROGEN) 14 MG/DL (6-23); CHLORIDE, SERUM 104 MMOL/L (96-112); CO2 (CARBON DIOXIDE) 30 MMOL/L (24-34); CREATININE 0.79 MG/DL (0.70-1.30); GFR AFRICAN AMERICAN 116 ML/MIN (>=60); GFR NON AFRICAN AMERICAN 100 ML/MIN (>=60); GLUCOSE, SERUM 93 MG/DL (60-99); POTASSIUM, SERUM 4.1 MMOL/L (3.5-5.3); SODIUM, SERUM 141 MMOL/L (135-148)
[2016-06-12] MEDS ORDERED: MOMUD PO (16:30)
[2016-06-12] MEDS ORDERED: MYTAB GAS80 MG PO (16:30)
[2016-06-12] MEDS ORDERED: MIRALAX POWDER1 PKT PO (16:32)
[2016-06-12] MEDS ORDERED: REG PO (16:33)
[2016-07-03] MEDS ORDERED: VITC500 PO (17:11)
[2016-07-03] MEDS ORDERED: DEX4 PO (17:13)
== END 2016-06-12 17:40 | disposition home health service (06) | DRG 374 ==
LOC: 4EA 11:59
PROVIDERS: Internal Medicine Hematology & Oncology; Nurse Practitioner Family; Surgery
PROC: 05H533Z Insertion of Infusion Device into Right Subclavian Vein, Percutaneous Approach (ICD-10-PCS; principal; 2016-06-03)
PROC: B5161ZA Fluoroscopy of Right Subclavian Vein using Low Osmolar Contrast, Guidance (ICD-10-PCS; 2016-06-03)
PROC: 0DHA3UZ Insertion of Feeding Device into Jejunum, Percutaneous Approach (ICD-10-PCS; 2016-06-03)
DX: C15.5 Malignant neoplasm of lower third of esophagus (principal); E43 Unspecified severe protein-calorie malnutrition; F32.9 Major depressive disorder, single episode, unspecified; J44.9 Chronic obstructive pulmonary disease, unspecified; F17.210 Nicotine dependence, cigarettes, uncomplicated; F41.9 Anxiety disorder, unspecified; Z68.25 Body mass index [BMI] 25.0-25.9, adult
CPT/HCPCS: 71010; 71020; 77001; 77280; 77290; 77295; 77300; 77334; 77412; 78815; 80048; 80053; 82962; 83735; 84100; 85025; 93005; A9270-GY; A9552; C1751; J0690; J1170; J2250; J2405; J2710; J2765; J3010

== ENCOUNTER 2016-07-05 15:10 | Inpatient (IN) | payer OTHER ==
--- NOTE | ~2016-07-05 | HP ---
History And Physical [place] [address] [place]. [address] NAME: JARVIS HOOPER : 58 STATUS : ADM IN [facility]#: [id number] AGE: 56 ADM/REG DATE : 07/05/16 MR#: [id number] REPORT SERV DATE: 07/06/16 DICTATED BY: RONNY BRADSHAW III DATE: 07/06/16 REPORT STATUS : Draft TRANSCRIBED BY: MODDmitri DATE: 07/06/16 DATE OF ADMISSION: 07/05/2016 HISTORY OF PRESENT ILLNESS: This 56-year-old male admitted to the hospital emergently with severe cellulitis of the abdominal wall associated with leaking around a jejunostomy feeding tube. The patient has a history of stage IV esophageal cancer. He has retroperitoneal metastasis as well as possible pulmonary metastasis. He is currently undergoing chemotherapy and radiation therapy. The patient has a jejunal feeding tube which was placed with severe dysphagia. This was placed on 06/05/2016. The patient's postoperative recovery was uneventful. Over the last several days, the patient has noted drainage around the feeding tube. This has become progressively worse and resulting in excoriation of the skin over the abdominal wall. The feeding tube was checked in Radiology and noted to be in good position. It continued to leak and was replaced with the new feeding tube and noted to be in good position the day prior to admission. On the day of admission, the patient's girlfriend called stating that he was continued to have drainage and that this was unacceptable and demanded admission to the hospital because of the pain associated with it. The patient himself states that he is now eating some food well. He states that he ate Filipino food last night. He states that during the night, there was minimal drainage. PAST MEDICAL HISTORY: History of stage IV esophageal cancer. The patient's workup shows evidence for probable pulmonary metastasis with also evidence for cerebral metastasis. On PET scan, there were noted to be multiple celiac and retroperitoneal lymph nodes and multiple pulmonary nodules. MEDICATIONS: As per medication list, which I have reviewed. REVIEW OF SYSTEMS: Otherwise unremarkable. The patient earlier had severe dysphagia. He states this is improved and again that he ate Filipino food last night. PHYSICAL EXAMINATION: GENERAL: This is a male, in no acute distress. He is alert and oriented x3. VITAL SIGNS: Blood pressure 115/67, temperature 98.6, pulse 70. HEENT: Unremarkable. Cranial nerves 2 through 12 were normal. LUNGS: Clear. CARDIAC: Normal. ABDOMEN: Soft. The patient has a jejunal feeding tube exiting from the left side of the abdominal wall. Surrounding this, there is some erythema and irritation and excoriation of the skin. There is a small amount of bilious drainage noted. EXTREMITIES: Normal. LABORATORY DATA: White blood cell count is 8.5, hematocrit 40. Electrolytes are unremarkable. Contrast study performed through the J-tube reveals it to be in good position with no extravasation. History And Physical [address] [address] NAME: JARVIS HOOPER : 58 STATUS : ADM IN [facility]#: [id number] AGE: 56 ADM/REG DATE : 07/05/16 MR#: [id number] REPORT SERV DATE: 07/06/16 DICTATED BY: RONNY BRADSHAW III DATE: 07/06/16 REPORT STATUS : Draft TRANSCRIBED BY: STEVAN DATE: 07/06/16 ASSESSMENT: 56-year-old male with stage IV esophageal cancer, currently receiving chemotherapy and radiation therapy, with leakage around the jejunal feeding tube and excoriation of the skin. PLAN: The patient has failed to respond to outpatient management. He is admitted to the hospital emergently for this problem. We requested zinc oxide to be applied to the excoriated area. If necessary, I have requested a pouch replaced to collect the drainage and to protect the skin. We will ask the wound nurse to see the patient in consultation. I have discussed options with the patient which could include removing the tube and proceeding with TPN rather than enteral feedings. However, at this time, the patient notes that his dysphagia has improved over the last several days and he would like to try a diet. We will therefore allow him to have a diet as tolerated. We will supplement this with Ensure. I have asked the roof tile layer to see him in consultation. It may be that the feeding tube will not be needed much longer if his dysphagia improves with radiation therapy. I have explained to the patient that the feeding tube is in good position and surgically, there is no indication for surgical intervention. Again that we will try to manage his problem with local wound care, pouching around the feeding tube if necessary, proceeding with TPN if necessary. If this does not result in improvement of the excoriation of the skin, unless he is able to maintain adequate p.o. intake in which case the jejunal feedings can be stopped. This plan has been explained to the patient. His questions have been answered. He understands and agrees to this as planned. RHJ/STEVAN Ronny Bradshaw III, M.D. / [id number] CC: Ronny Bradshaw III, M.D.
--- NOTE | ~2016-07-05 | DS ---
Discharge Summary [facility] [address] [facility] [place]. [address] NAME: JARVIS HOOPER : 58 STATUS : DIS IN PAT#: [id number] AGE: 56 ADM/REG DATE : 07/05/16 MR#: [id number] REPORT SERV DATE: 07/16/16 DICTATED BY: RONNY BRADSHAW III DATE: 07/15/16 REPORT STATUS : Draft TRANSCRIBED BY: STEVAN DATE: 07/15/16 Data Collection from hospitalization DISCHARGE DIAGNOSIS(ES): 1. Mental impairment. 2. Abdominal wall cellulitis. 3. Feeding J tube leakage. 4. Esophageal cancer. CONSULTATIONS: None. PROCEDURES PERFORMED: Feeding tube replacement 07/05/2016. MEDICATIONS: Vitamin C 250 mg daily, Celexa 40 mg daily, Decadron 4 mg four times a day, Duragesic 25 mcg patch change every 72 hours, multiple vitamin without minerals one daily, Megace oral suspension 10 mL daily, Zofran 8 mg every 8 hours as needed, Klonopin 0.5 mg three times daily as needed, milk of magnesia 30 mL daily as needed, Mylicon 80 mg every 6 hours as needed, and Reglan 10 mg every 8 hours as needed. CONDITION AT DISCHARGE: Upon discharge, he did appear to be doing well and was noted to be feeling better. DISPOSITION: He was discharged home to continue a GI soft, low-fat diet with activity as discussed. He was to follow up with his primary care physician as needed. Follow up with myself in 2 weeks on 07/10/2016. HOSPITAL COURSE: This 56-year-old male was admitted emergently with severe cellulitis of the abdominal wall associated with leaking around a jejunostomy feeding tube. He had a history of stage IV esophageal cancer. He had retroperitoneal metastasis as well as possible pulmonary metastasis. He was undergoing chemotherapy and radiation therapy. He had a jejunal feeding tube which was placed with severe dysphagia. This was placed on 06/05/2016. The patient's postoperative recovery was uneventful. Over the last several days prior to admission, he had noted drainage around the feeding tube. This had become progressively worse and resulting in excoriation of the skin over the abdominal wall. The feeding tube was checked in radiology and noted to be in good position. It continued to leak and was replaced with a new feeding tube and noted to be in good position on the day prior to admission. On the day of admission, his girlfriend called stating that he had continued to have drainage and that this was unacceptable and demanded admission to the hospital because of the pain associated with this. The patient himself stated that he was now eating some food well. He stated that he had eaten [place] food the evening prior to admission. He stated that during the night there was minimal drainage. He was however admitted for further evaluation and treatment. Upon admission to the hospital, he had been placed on a clear liquid diet as tolerated. He was begun on zinc oxide to the affected skin as needed. He had been placed on morphine at 2 mg IV every 4 hours as needed for psnu-lr-[id number] pain as well as acetaminophen 650 mg orally every 4 hours as needed for mild pain or temperature above 101, Zofran 4 mg IV every 4 hours as needed for nausea or vomiting. He had also been placed on IV fluids with D5 one-half normal saline plus 20 mEq of potassium chloride at 125 mL/hour. He was begun on TPN as well. He did undergo feeding tube placement check on the Discharge Summary [address] [address] NAME: JARVIS HOOPER : 58 STATUS : DIS IN PAT#: [id number] AGE: 56 ADM/REG DATE : 07/05/16 MR#: [id number] REPORT SERV DATE: 07/16/16 DICTATED BY: RONNY BRADSHAW III DATE: 07/15/16 REPORT STATUS : Draft TRANSCRIBED BY: MODDmitri DATE: 07/15/16 day of admission. Following the day of admission, he did appear to be doing well and was continued on his current medications. He had no new complaints noted. On 07/07, he was afebrile and his vital signs were stable, and he was being weaned from TPN. He did appear to be doing well and had no new complaints noted. It was felt that the patient would likely not need J tube feeding as he did appear to be eating well. On 07/08, the patient stated that he felt well and wanted to go home. He was noted to be eating well and had no new complaints. He did remain afebrile. As he continued to do well, he was then discharged with the above instructions. Information collected by: Thierno Shaver. I submit the above information as my discharge summary. RW/MODL Ronny Bradshaw III, M.D. / [id number] CC: Ronny Bradshaw III, M.D.
[~2016-07-05 15:10] MED LIST changes: +ADVIL PO; +DEX4 PO; +ENDOCET1 TA1 PO; +HERBAL; +KLONO5 PO; +MIRALAX POWDER1 PKT PO; +MOMUD PO; +MYTAB GAS80 MG PO; +REG PO; +T PO; +VITAMIN C100 M1 PO; +VITC500 PO; +ZOFRAN8 PO
[2016-07-05] MEDS ORDERED: MEGACEUDL PO (16:46)
[2016-07-05] MEDS ORDERED: DURA25 TOP (16:48)
[2016-07-06 06:18] LABS: BASOPHILS 0.1 %; BASOPHILS ABSOLUTE 0.01 10/3/uL (0.0-0.16); EOSINOPHILS 1.7 %; EOSINOPHILS ABSOLUTE 0.14 10/3/uL (0.0-0.53); HEMATOCRIT 40.8 % (40.0-51.0); HEMOGLOBIN 14.1 g/dL (13.6-17.8); IMMATURE GRANULOCYTES 0.5 %; IMMATURE GRANULOCYTES ABSOLUTE 0.04 10/3/uL (0.0-0.11); LYMPHOCYTES ABSOLUTE 0.68 10/3/uL (0.67-4.30); MEAN CORPUS HGB CONC 34.6 g/dL (32.0-36.0); MEAN CORPUSCULAR VOLUME 92.5 fL (80-100); MEAN PLATELET VOLUME 9.4 fL (9.2-13.0); MONOCYTES 13.4 %; MONOCYTES ABSOLUTE 1.13 10/3/uL (0.21-1.20); NEUTROPHILS 76.3 %; NEUTROPHILS ABSOLUTE 6.46 10/3/uL (2.02-8.40); RBC DISTRIBUTION WIDTH 13.8 % (12.0-16.0); RED CELL COUNT 4.41 10/6/uL (4.7-6.1)
[2016-07-06 06:20] LABS: MANUAL DIFF NO %; PLATELET COUNT 152 10/3/uL (150-400); WHITE BLOOD CELLS 8.5 10/3/uL (4.5-10.5)
[2016-07-06 06:37] LABS: A/G RATIO 0.9 (0.7-1.9); ALKALINE PHOSPHATASE 67 U/L (45-117); BUN (BLOOD UREA NITROGEN) 13 MG/DL (6-23); CHLORIDE, SERUM 104 MMOL/L (96-112); GFR AFRICAN AMERICAN 121 ML/MIN (>=60); GFR NON AFRICAN AMERICAN 105 ML/MIN (>=60); GLOBULIN 3.2 G/DL (2.5-4.1); PHOSPHORUS, SERUM 2.5 MG/DL (2.5-4.5); POTASSIUM, SERUM 4.1 MMOL/L (3.5-5.3); SGOT(AST) 16 U/L (5-40); SGPT(ALT) 32 U/L (5-65); SODIUM, SERUM 137 MMOL/L (135-148); TOTAL BILIRUBIN 0.7 MG/DL (0-1.2)
[2016-07-06 06:39] LABS: ALBUMIN 2.8 G/DL (3.5-5.0); CALCIUM, SERUM 8.8 MG/DL (8.5-10.4); CO2 (CARBON DIOXIDE) 28 MMOL/L (24-34); GLUCOSE, SERUM 123 MG/DL (60-99); TRIGLYCERIDE 74 MG/DL (< 150)
[2016-07-06 06:53] LABS: PREALBUMIN 15.7 MG/DL (17.0-43.0)
[2016-07-06 17:51] LABS: A/G RATIO 0.8 (0.7-1.9); ALBUMIN 2.8 G/DL (3.5-5.0); ALKALINE PHOSPHATASE 69 U/L (45-117); BUN (BLOOD UREA NITROGEN) 11 MG/DL (6-23); CHLORIDE, SERUM 104 MMOL/L (96-112); CO2 (CARBON DIOXIDE) 29 MMOL/L (24-34); CREATININE 0.73 MG/DL (0.70-1.30); GFR AFRICAN AMERICAN 119 ML/MIN (>=60); GFR NON AFRICAN AMERICAN 103 ML/MIN (>=60); GLOBULIN 3.6 G/DL (2.5-4.1); GLUCOSE, SERUM 118 MG/DL (60-99); POTASSIUM, SERUM 4.7 MMOL/L (3.5-5.3); PREALBUMIN 17.2 MG/DL (17.0-43.0); SGOT(AST) 23 U/L (5-40); SGPT(ALT) 36 U/L (5-65); SODIUM, SERUM 137 MMOL/L (135-148); TOTAL BILIRUBIN 0.4 MG/DL (0-1.2); TOTAL PROTEIN 6.4 G/DL (6.0-8.5)
[2016-07-07 04:28] LABS: CHLORIDE, SERUM 104 MMOL/L (96-112); CREATININE 0.69 MG/DL (0.70-1.30); GFR AFRICAN AMERICAN 122 ML/MIN (>=60); GFR NON AFRICAN AMERICAN 105 ML/MIN (>=60); GLUCOSE, SERUM 140 MG/DL (60-99); PHOSPHORUS, SERUM 2.5 MG/DL (2.5-4.5); POTASSIUM, SERUM 4.7 MMOL/L (3.5-5.3); SODIUM, SERUM 135 MMOL/L (135-148)
[2016-07-07 04:29] LABS: BUN (BLOOD UREA NITROGEN) 16 MG/DL (6-23); CO2 (CARBON DIOXIDE) 24 MMOL/L (24-34)
[2016-07-08 04:46] LABS: BUN (BLOOD UREA NITROGEN) 22 MG/DL (6-23); CALCIUM, SERUM 9.5 MG/DL (8.5-10.4); CHLORIDE, SERUM 103 MMOL/L (96-112); CO2 (CARBON DIOXIDE) 27 MMOL/L (24-34); CREATININE 0.72 MG/DL (0.70-1.30); GFR AFRICAN AMERICAN 120 ML/MIN (>=60); GFR NON AFRICAN AMERICAN 104 ML/MIN (>=60); GLUCOSE, SERUM 122 MG/DL (60-99); POTASSIUM, SERUM 4.5 MMOL/L (3.5-5.3); SODIUM, SERUM 134 MMOL/L (135-148)
== END 2016-07-08 16:39 | disposition home or self-care (01) | DRG 394 ==
LOC: 4EA 15:10
PROVIDERS: Surgery
PROC: 3E0436Z Introduction of Nutritional Substance into Central Vein, Percutaneous Approach (ICD-10-PCS; principal; 2016-07-06)
DX: K94.12 Enterostomy infection (principal); C78.6 Secondary malignant neoplasm of retroperitoneum and peritoneum; C78.00 Secondary malignant neoplasm of unspecified lung; R13.19 Other dysphagia; L03.311 Cellulitis of abdominal wall; Z85.01 Personal history of malignant neoplasm of esophagus
CPT/HCPCS: 43761; 77336; 77373; 80048; 80053; 82330; 82962; 83735; 84100; 84134; 84478; 85025; A9270-GY; J2405

== ENCOUNTER 2016-07-14 20:00 | Inpatient (IN) | payer OTHER ==
--- NOTE | ~2016-07-14 | DS ---
Discharge Summary [facility] [address] [place]. [address] NAME: JARVIS HOOPER : 58 STATUS : DIS IN PAT#: [id number] AGE: 56 ADM/REG DATE : 07/15/16 MR#: [id number] REPORT SERV DATE: 07/20/16 DICTATED BY: JEWEL BUTT DATE: 07/19/16 REPORT STATUS : Draft TRANSCRIBED BY: MODL DATE: 07/19/16 ADMISSION DATE: 07/15/2016 DISCHARGE DATE: 07/19/2016 DISCHARGE DIAGNOSES: 1. Upper gastrointestinal bleed, resolved. 2. Esophageal cancer. 3. History of chronic obstructive pulmonary disease. 4. Tobacco abuse. CONSULTS: GI, Dr. Isha Frye. PROCEDURES AND IMAGIN. Chest x-ray, 07/14/2016. Impression: No acute cardiopulmonary disease. 2. CT abdomen and pelvis, 07/14/2016. Impression: Marked gastric distention suggesting gastroparesis. No mechanical lesions suggested. 3. CTA of chest, 07/14/2016. Impression: Multiple small nodules. With history of esophageal cancer, this is most concerning for neoplastic change. COPD emphysematous type. Coronary artery disease. 4. CT cervical spine, 07/14/2016. Impression: No acute fracture or malignant cervical spine. Diffuse mild spondylitic changes with mildly prominent marginal osteophyte. 5. CT brain, 07/15/2016, bleed into metastasis versus a hypertensive related bleed versus a cavernous angioma involving the left thalamic body. 6. Upper GI endoscopy, 07/16/[address] Frye. Findings: Nonbleeding esophageal ulcer. LA grade D esophagitis. Red blood in the gastric fundus and in the gastric body. Gastric ulcer containing visible vessel. Treated with thermal therapy. Non-bleeding erosive gastropathy. Normal duodenal bulb and second part of the duodenum. Recommendation: Protonix 40 mg b.i.d. for eight weeks. HOSPITAL COURSE: Please refer to history and physical dictated by Dr. Gupta on 07/15/2016 for complete admission details. The patient is a 56-year-old male, who was admitted to ICU with active GI bleed. He did present with a history of adenocarcinoma of the esophagus. The patient had undergone EGD in May 2016 which showed large complete obstructing mass in the distal esophagus, biopsy confirmed this was adenocarcinoma. The patient when admitted stated he was having dizziness, weakness, diarrhea with dark stools. WBC count upon admission was 23,000, hemoglobin was 12, hematocrit 37, and platelet count was 228,000. Lactate was 3.0. 1. Upper GI bleed. As noted above, the patient was admitted for upper GI bleed. The patient was admitted to ICU, GI was consulted as noted. The patient did undergo an upper GI endoscopy which noted bleeding. The patient was started on Protonix. He will continue Protonix 40 mg b.i.d. x8 weeks. At this time, the patient has no active bleeding noted. He is tolerating a soft GI diet. He will follow up with Dr. Harris in one week. 2. Esophageal cancer, followed by Dr. Harris. The patient will again follow up with Dr. Harris in one week to discuss treatment plans. It has also been offered for the Discharge Summary [address] [address] NAME: JARVIS HOOPER : 58 STATUS : DIS IN PAT#: [id number] AGE: 56 ADM/REG DATE : 07/15/16 MR#: [id number] REPORT SERV DATE: 07/20/16 DICTATED BY: JEWEL BUTT DATE: 07/19/16 REPORT STATUS : Draft TRANSCRIBED BY: STEVAN DATE: 07/19/16 patient to follow up with Palliative Care outpatient, at this time he has not made a final decision and the information has been provided for the patient. 3. History of COPD. The patient has remained stable during his visit. 4. Tobacco abuse. The patient has been offered a nicotine patch, he has declined. DISCHARGE MEDICATIONS: 1. Decadron 4 mg one p.o. every 6 hours. 2. Duragesic 25 mcg transdermal patch topical every 72 hours. 3. Klonopin 0.5 mg one p.o. daily p.r.n. 4. Vitamin C 100 mg, 250 mg p.o. daily. 5. Reglan 5 mg one p.o. before meals. 6. Protonix 40 mg one p.o. every 12 hours x8 weeks. 7. Celexa 40 mg one p.o. daily. 8. Megace 40 mg/mL, 10 mL daily. 9. Simethicone 80 mg p.o. daily p.r.n. 10.MiraLAX powder one pack p.o. daily. 11.Zofran 8 mg one p.o. every 8 hours as needed for nausea. 12.Multivitamin one p.o. daily. This patient is being discharged home in hemodynamically stable condition. We will continue Protonix 40 mg one p.o. b.i.d. for eight weeks. We will follow up with Dr. Harris in one week. The patient will resume home health care, wound care, and physical therapy upon discharge. This discharge took less than 30 minutes. DICTATED BY: Jewel Butt NP MR/MODL Jewel Butt NP / [id number] CC: Prince Herbert M.D.
--- NOTE | ~2016-07-14 | CN ---
Consultation Report [facility] [address] [place]. [address] NAME: JARVIS SANDS : 58 STATUS : ADM IN [facility]#: [id number] AGE: 56 ADM/REG DATE : 07/15/16 MR#: [id number] REPORT SERV DATE: 07/16/16 DICTATED BY: DENA FRYE DATE: 07/16/16 REPORT STATUS : Draft TRANSCRIBED BY: MODL DATE: 07/16/16 GI CONSULTATION DATE OF CONSULTATION: 07/15/2016 REASON FOR CONSULTATION: Melena and anemia. HISTORY OF PRESENT ILLNESS: Mr. 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 This was diagnosed on diagnostic EGD, which was performed earlier in May of this year. He has received his radiation therapy and has had a J-tube placed by Dr. Horton and is still taking his nutrition by mouth. He has had melenic stools over the past one to two days prior to his admission and when he was seen in the emergency room, was orthostatic, tachycardic, and hypotensive. He denies any hematemesis or coffee-ground emesis. No nausea or vomiting, and through his J tube, it was reported that he had some dark coffee-ground- like material. His hemoglobin and hematocrit on admission were 12.8 and 37 respectively; currently, they are 10.1 and 29.6. He had one melenic stool the day prior to this consultation on 07/15. Platelets are normal at 196. INR is 1.2. JCH-iu-jlqqotshvz is 53 and 0.86. He has also been on steroids recently as well. PAST MEDICAL HISTORY: Stage IV adenocarcinoma of the esophagus with metastases to the lungs and nodes. COPD. PAST SURGICAL HISTORY: J-tube placement, back surgery, hand surgery, tonsillectomy, and kidney stones. SOCIAL HISTORY: Smoking and alcohol use. FAMILY HISTORY: Small-cell lung cancer and prostate cancer. MEDICATIONS: Reviewed. ALLERGIES: REVIEWED. PHYSICAL EXAMINATION: VITAL SIGNS: Patient is afebrile. Mildly tachycardic with heart rate in the 100s. Blood pressure normal and in no acute distress. HEENT: Atraumatic, normocephalic. Anicteric. Mucous membranes are moist. CARDIAC: S1, S2. CHEST: Clear. ABDOMEN: Soft, nontender, scaphoid, nondistended. Bowel sounds normoactive. LABORATORY DATA: Showed WBC 18.6, hemoglobin 10.1, hematocrit 29.6, and platelets 196. INR is 1.2. Sodium 145, potassium 4.7, chloride 117, bicarb 21, BUN 53, creatinine 0.86, Consultation Report [facility] [address] [place]. [address] NAME: JARVIS SANDS : 58 STATUS : ADM IN PAT#: [id number] AGE: 56 ADM/REG DATE : 07/15/16 MR#: [id number] REPORT SERV DATE: 07/16/16 DICTATED BY: DENA FRYE DATE: 07/16/16 REPORT STATUS : Draft TRANSCRIBED BY: STEVAN DATE: 07/16/16 glucose 148. Troponin noted to be 0.25. IMPRESSION AND PLAN: Concern for upper gastrointestinal bleed, given melenic stools and anemia, also with this history of esophageal mass, may be bleeding from this, but also he is on steroid, so he may have also increased risk of peptic ulcer disease. Continue Protonix drip. Continue serial H and H, and transfuse if his hemoglobin drops to 7. We will go ahead and schedule EGD with anesthesia for further evaluation and treatment. We will continue to follow with you obviously. ZEHRA/STEVAN Dena Frye MD / [id number] CC: Yelena Gupta M.D.
--- NOTE | ~2016-07-14 | EGD ---
EGD REPORT [facility] [address] [address] NAME: BILL SANDS : 58 STATUS : ADM IN PAT#: [id number] AGE: 56 ADM/REG DATE : 07/15/16 MR#: [id number] REPORT SERV DATE: 07/16/16 DICTATED BY: DENA RECIO DATE: 07/16/16 REPORT STATUS : Draft TRANSCRIBED BY: [facility] DATE: 07/16/16 Endoscopy Center Patient Name: Bill Sands Date of : 1960 Attending MD: DENA RECIO, Procedure Date No Time: 07/16/2016 Procedure: Upper GI endoscopy Indications: Acute post hemorrhagic anemia, Melena Medicines: Propofol per Anesthesia Complications: No immediate complications. Estimated blood loss: None. Procedure: Pre-Anesthesia Assessment: - ASA Grade Assessment: III - A patient with severe systemic disease. After obtaining informed consent, the endoscope was passed under direct vision. Throughout the procedure, the patient's blood pressure, pulse, and oxygen saturations were monitored continuously. The GIF [id number] was introduced through the mouth, and advanced to the second part of duodenum. The upper GI endoscopy was accomplished with ease. The patient tolerated the procedure well. Findings: One linear esophageal ulcer with no bleeding and no stigmata of recent bleeding was found 37 to 40 cm from the incisors. LA Grade D (one or more mucosal breaks involving at least 75% of esophageal circumference) esophagitis with no bleeding was found 37 to 40 cm from the incisors. Red blood was found in the gastric fundus and in the gastric body. One non-bleeding cratered gastric ulcer with a visible vessel was found in the cardia. The lesion was twenty mm by twenty-seven mm in largest dimension. Area was partially successfully injected with 2 mL of a 1:10,000 solution of epinephrine for hemostasis. Coagulation for hemostasis using bipolar probe was successful. Estimated blood loss: none. A few, small non-bleeding erosions were found in the gastric body. There were no stigmata of recent bleeding. The duodenal bulb and 2nd part of the duodenum were normal. Impression: - Non-bleeding esophageal ulcer. - LA Grade D esophagitis. - Red blood in the gastric fundus and in the gastric body. - Gastric ulcer containing visible vessel. Treated with thermal therapy. EGD REPORT [facility] [id number] [facility] [place]. [address] NAME: BILL SANDS : 58 STATUS : ADM IN [facility]#: [id number] AGE: 56 ADM/REG DATE : 07/15/16 MR#: [id number] REPORT SERV DATE: 07/16/16 DICTATED BY: DENA RECIO DATE: 07/16/16 REPORT STATUS : Draft TRANSCRIBED BY: [employer] DATE: 07/16/16 - Non-bleeding erosive gastropathy. - Normal duodenal bulb and 2nd part of the duodenum. Recommendation: - NPO today- ok for for meds and small sips. - Clear liquid diet tomorrow. - Observe patient's clinical course. - Give Protonix (pantoprazole): 8 mg/hr IV by continuous infusion for 3 days. - Use Protonix (pantoprazole) 40 mg PO BID for 8 weeks at discharge. - Repeat the upper endoscopy in 2 months to check healing. Procedure Code(s): --- Professional --- 38413, Esophagogastroduodenoscopy, flexible, transoral; with control of bleeding, any method Diagnosis Code(s): --- Professional --- K22.10, Ulcer of esophagus without bleeding K20.9, Esophagitis, unspecified K92.2, Gastrointestinal hemorrhage, unspecified K25.4, Chronic or unspecified gastric ulcer with hemorrhage K31.9, Disease of stomach and duodenum, unspecified D62, Acute posthemorrhagic anemia K92.1, Melena CPT copyright 2013 [employer]. All rights reserved. The codes documented in this report are preliminary and upon computer language coder review may be revised to meet current compliance requirements. DENA RECIO, 07/16/2016 1:06 PM This report has been signed electronically. Number of Addenda: 0 Note Initiated On: 07/16/2016 12:35 PM Scope Withdrawal Time 0 hours 0 minutes 0 seconds [address] [place] [address]
--- NOTE | ~2016-07-14 | HP ---
History And Physical [facility] [address] [facility] [place]. [address] NAME: JARVIS HOOPER : 58 STATUS : ADM IN [facility]#: [id number] AGE: 56 ADM/REG DATE : 07/15/16 MR#: [id number] REPORT SERV DATE: 07/15/16 DICTATED BY: NANCY GUPTA DATE: 07/15/16 REPORT STATUS : Draft TRANSCRIBED BY: MODL DATE: 07/15/16 DATE OF ADMISSION: 07/15/2016 HISTORY OF PRESENT ILLNESS: This is a 56-year-old patient I was asked to admit to the ICU with active GI bleed. The patient was recently diagnosed with adenocarcinoma of the esophagus after he presented with severe dysphagia and an unintentional 20-pound weight loss. The patient underwent EGD in May, which showed a large complete obstructing mass in the distal esophagus, biopsy confirmed this to be adenocarcinoma. Since that time, the patient has been seen by Radiation Oncology and has undergone radiation treatment. He also is thought to have metastatic disease at least possibly to the lungs and regional lymph nodes. It is uncertain as of this dictation if the patient has any other metastatic disease. The patient presents today with dizziness, weakness, and diarrhea with dark stools that has probably been going for at least a day; however, the patient is a very poor historian and this may have been going on longer. He was brought in by his family, and was orthostatic, tachycardic, and hypotensive in the emergency room. His port was accessed, the patient was bolused IV fluids, which stabilized his blood pressure and he is currently being monitored in the ER awaiting an ICU bed. He has had no syncope at home. Denies any nausea, vomiting, hematemesis. ALLERGIES: HE HAS NO KNOWN DRUG ALLERGIES. CURRENT MEDICATIONS: 1. Vitamin C. 2. Celexa 40 mg p.o. daily. 3. Klonopin 0.5 mg p.r.n. 4. Dexamethasone 4 mg p.o. q.6 hours. 5. Duragesic patch 25 mcg transdermal q.72 hours. 6. Megace 10 mg p.o. daily. 7. Reglan 5 mg before meals. 8. Multivitamins one tablet daily. 9. Zofran 8 mg p.o. q.8 hours. 10.MiraLAX. 11.Simethicone. PAST MEDICAL HISTORY: Past medical history is significant for: 1. COPD. 2. Anxiety and depression. 3. History of bronchitis. 4. Back surgery. 5. Hand surgery. 6. Kidney stone removal. 7. Tonsillectomy. SOCIAL HISTORY: The patient lives with his significant other. He has smoked for 30 years at least a pack a day if not more; still continues to smoke. Drinks alcohol on a regular basis. Has a daughter. History And Physical [address] [address] NAME: JARVIS HOOPER : 58 STATUS : ADM IN [facility]#: [id number] AGE: 56 ADM/REG DATE : 07/15/16 MR#: [id number] REPORT SERV DATE: 07/15/16 DICTATED BY: NANCY GUPTA DATE: 07/15/16 REPORT STATUS : Draft TRANSCRIBED BY: STEVAN DATE: 07/15/16 FAMILY HISTORY: Significant for small cell cancer in his father and prostate cancer in the paternal grandfather. REVIEW OF SYSTEMS: A 10-point review of systems was done and is as per history of present illness. PHYSICAL EXAMINATION: VITAL SIGNS: The patient was seen in the emergency room. Currently, his temperature is 97.5, pulse is 115 sinus tach, respiratory rate is 27, O2 saturation is 99% on room air, and blood pressure 96/64. GENERAL: He appeared pale. He is not in any distress. He was complaining of some abdominal pain on admission, but now appears fairly comfortable. HEENT: Head is atraumatic and normocephalic. Pupils are equal, round, and reactive to light and accommodation. Extraocular eye movements are intact. Sclerae anicteric. Conjunctivae are pink. Nasal mucosa is within normal limits. Oral mucosa is moist. Tongue is midline. NECK: Supple without JVD, lymphadenopathy, or thyromegaly. LUNG: Diminished breath sounds. No wheezing. He has a right subclavian port that has been accessed. ABDOMEN: Nondistended. There is very minimal pain to palpation. No rebound tenderness. There is a dressing over a J-tube site which the patient tells me was removed by Dr. Horton last week, we are not entirely certain as to why. RECTAL: Deferred. GENITAL: Deferred. EXTREMITIES: Without cyanosis, clubbing, or edema. Of note, when the patient did present to the emergency room he was noted to have dark stool on his legs. NEUROLOGIC: Grossly nonfocal; however, the patient does seem confused at times, and there was some mention in the previous dictation of possible consideration for brain mets, but this has not been confirmed. DIAGNOSTIC AND LABORATORY DATA: His EKG shows normal sinus rhythm. White cell count is 23,000, hemoglobin 12, hematocrit 37, and platelet count is 228,000. INR is 1.2. Lactic acid level was 3.0. Sodium 143, potassium 4.8, chloride 111, bicarb 26, BUN 51, creatinine 1.18, and blood sugar is 162. Repeat H and H is pending. ASSESSMENT AND PLAN: 1. This is a 56-year-old patient with recent diagnosis of distal adenocarcinoma of the esophagus and probable metastatic disease to the lung who has been started on radiation therapy. We will need to obtain further records from Dr. Harris for any other details of his cancer treatment. The patient now presents with dark stools for at least one History And Physical [address] [address] NAME: JARVIS HOOPER : 58 STATUS : ADM IN [facility]#: [id number] AGE: 56 ADM/REG DATE : 07/15/16 MR#: [id number] REPORT SERV DATE: 07/15/16 DICTATED BY: NANCY GUPTA DATE: 07/15/16 REPORT STATUS : Draft TRANSCRIBED BY: MODL DATE: 07/15/16 day, orthostasis, tachycardia, and probable lower GI bleed. The patient already has been started on a Protonix drip. Serial H and Hs have been ordered and parameters for transfusion have been written for. Dr. Melva garcia GI will be seeing the patient in the a.m. The patient will be kept n.p.o. at this time. 2. Esophageal cancer of the distal esophagus adenocarcinoma. We will ask Dr. Harris to see the patient later today. We will continue Decadron for now until further detail of the patient's treatment plan is available. Of note, the patient also was complaining of extreme shortness of breath and abdominal pain. CTA of the chest did not show any evidence of pulmonary embolism. Pulmonary nodules some of which show cavitation were seen in the lungs. The patient also had a CT scan of the abdomen and pelvis that did not show any free air, but did show 2.4 cm mass in the upper pole of the left kidney. No other significant findings were seen on the CT scan of the abdomen and pelvis. We will obtain CT scan of the head to rule out the possibility of metastatic disease. Total time spent with the patient was 50 minutes, starting at 2:40 a.m. to . The patient is at risk for respiratory arrest, hemorrhagic shock, and remains a full code. He needs frequent and close monitoring of H and H of his hemoglobin and hematocrit, and transfusion at this point for a hemoglobin at least less than 8. He has dropped 2 g of hemoglobin since he was last seen here, hemoglobin just on the 07/06/2016 was 14 and is currently 12. At this point, the patient is not in need of any pressors. He also has an elevated white cell count which could be secondary to stress, but we will check a UA, procalcitonin, B12, folate, TSH, urinalysis, procalcitonin, cortisol level, troponin, and CK MB. /MODL Nancy Gupta M.D. / [id number] CC: Nancy Gupta M.D.
[~2016-07-14 20:00] MED LIST changes: +DURA25 TOP; +MEGACEUDL PO
[2016-07-14 22:10] LABS: BASOPHILS 0 %; BASOPHILS ABSOLUTE 0.01 10/3/uL (0.0-0.16); EOSINOPHILS 0 %; EOSINOPHILS ABSOLUTE 0.01 10/3/uL (0.0-0.53); HEMATOCRIT 37.4 % (40.0-51.0); HEMOGLOBIN 12.8 g/dL (13.6-17.8); IMMATURE GRANULOCYTES 1.5 %; IMMATURE GRANULOCYTES ABSOLUTE 0.35 10/3/uL (0.0-0.11); LYMPHOCYTES ABSOLUTE 1.67 10/3/uL (0.67-4.30); MEAN CORPUS HGB CONC 34.2 g/dL (32.0-36.0); MEAN CORPUSCULAR VOLUME 93.5 fL (80-100); MEAN PLATELET VOLUME 9.6 fL (9.2-13.0); MONOCYTES 3.2 %; MONOCYTES ABSOLUTE 0.76 10/3/uL (0.21-1.20); NEUTROPHILS 88.3 %; NEUTROPHILS ABSOLUTE 21.05 10/3/uL (2.02-8.40); RBC DISTRIBUTION WIDTH 14.4 % (12.0-16.0)
[2016-07-14 22:12] LABS: ER CBC TAT 0 Hrs 14 Mins; PLATELET COUNT 228 10/3/uL (150-400); WHITE BLOOD CELLS 23.9 10/3/uL (4.5-10.5)
[2016-07-14 22:13] LABS: MANUAL DIFF NO %
[2016-07-14 22:15] LABS: INTERNATIONAL NORMAL RATI 1.2 UNITS (-); PARTIAL THROMBO TIME 25.1 SEC (22.5-37.2); PROTIME (NOT ORD) 15.3 SEC (12.0-14.5)
[2016-07-14 22:17] LABS: A/G RATIO 0.8 (0.7-1.9); ALBUMIN 2.7 G/DL (3.5-5.0); ALKALINE PHOSPHATASE 60 U/L (45-117); BUN (BLOOD UREA NITROGEN) 51 MG/DL (6-23); CALCIUM, SERUM 8.9 MG/DL (8.5-10.4); CHLORIDE, SERUM 111 MMOL/L (96-112); CO2 (CARBON DIOXIDE) 26 MMOL/L (24-34); CREATININE 1.18 MG/DL (0.70-1.30); GFR AFRICAN AMERICAN 79 ML/MIN (>=60); GFR NON AFRICAN AMERICAN 68 ML/MIN (>=60); GLOBULIN 3.2 G/DL (2.5-4.1); GLUCOSE, SERUM 162 MG/DL (60-99); POTASSIUM, SERUM 4.8 MMOL/L (3.5-5.3); SGOT(AST) 21 U/L (5-40); SGPT(ALT) 44 U/L (5-65); SODIUM, SERUM 143 MMOL/L (135-148); TOTAL BILIRUBIN 0.7 MG/DL (0-1.2); TOTAL PROTEIN 5.9 G/DL (6.0-8.5)
[2016-07-14 23:02] LABS: SEGMENTED NEUTROPHIL (0) 90 %; TOTAL NUCLEATED CELLS 100
[2016-07-14 23:03] LABS: BAND NEUTROPHILS 1 %; BASOPHILS 1 %; BASOPHILS ABSOLUTE (CALC) 0.24 10/3/uL (0.0-0.16); ER DIFF TAT 1 Hrs 04 Mins; LYMPHOCYTES 4 %; LYMPHOCYTES ABSOLUTE (CALC) 0.96 10/3/uL (0.67-4.30); MONOCYTES 4 %; MONOCYTES ABSOLUTE (CALC) 0.96 10/3/uL (0.21-1.20); NEUTROPHILS ABSOLUTE (CALC) 21.75 10/3/uL (2.02-8.40)
[2016-07-14 23:04] LABS: PLATELET ESTIMATE ADQ (ADEQUATE)
[2016-07-15] MEDS ORDERED: KLONO5 PO (02:21)
[2016-07-15] MEDS ORDERED: VITAMIN C100 M1 PO (02:22)
[2016-07-15] MEDS ORDERED: REG5 PO (02:23)
[2016-07-15] MEDS ORDERED: CELEXA40 MG PO (02:23)
[2016-07-15] MEDS ORDERED: DEX4 PO (02:24)
[2016-07-15] MEDS ORDERED: DURA25 TOP (02:24)
[2016-07-15] MEDS ORDERED: MYTAB GAS80 MG PO (02:26)
[2016-07-15] MEDS ORDERED: MEGACEUDL PO (02:26)
[2016-07-15] MEDS ORDERED: ZOFRAN8 PO (02:27)
[2016-07-15] MEDS ORDERED: MIRALAX POWDER1 PKT PO (02:27)
[2016-07-15] MEDS ORDERED: MULTIVITAMI1 PO (02:27)
[2016-07-15 05:31] LABS: BASOPHILS 0 %; EOSINOPHILS 0 %; HEMATOCRIT 31.5 % (40.0-51.0); HEMOGLOBIN 10.8 g/dL (13.6-17.8); IMMATURE GRANULOCYTES ABSOLUTE 0.18 10/3/uL (0.0-0.11); LYMPHOCYTES 3.6 %; LYMPHOCYTES ABSOLUTE 0.68 10/3/uL (0.67-4.30); MEAN CORPUS HGB CONC 34.3 g/dL (32.0-36.0); MEAN CORPUSCULAR VOLUME 93.2 fL (80-100); MEAN PLATELET VOLUME 9.3 fL (9.2-13.0); MONOCYTES 6.6 %; MONOCYTES ABSOLUTE 1.23 10/3/uL (0.21-1.20); NEUTROPHILS 88.8 %; NEUTROPHILS ABSOLUTE 16.55 10/3/uL (2.02-8.40); PLATELET COUNT 196 10/3/uL (150-400); RBC DISTRIBUTION WIDTH 14.6 % (12.0-16.0); RED CELL COUNT 3.38 10/6/uL (4.7-6.1); WHITE BLOOD CELLS 18.6 10/3/uL (4.5-10.5)
[2016-07-15 05:32] LABS: MANUAL DIFF NO %
[2016-07-15 06:12] LABS: BUN (BLOOD UREA NITROGEN) 53 MG/DL (6-23); CHLORIDE, SERUM 117 MMOL/L (96-112); CPK (IF ELEVATED MB BANDS) 140 U/L (0-200); CREATININE 0.86 MG/DL (0.70-1.30); GFR AFRICAN AMERICAN 112 ML/MIN (>=60); GFR NON AFRICAN AMERICAN 96 ML/MIN (>=60); GLUCOSE, SERUM 148 MG/DL (60-99); PHOSPHORUS, SERUM 2.1 MG/DL (2.5-4.5); POTASSIUM, SERUM 4.7 MMOL/L (3.5-5.3); SODIUM, SERUM 145 MMOL/L (135-148); ULTRASENSITIVE TSH 0.829 MCIU/ML (0.358-3.740)
[2016-07-15 06:14] LABS: CO2 (CARBON DIOXIDE) 21 MMOL/L (24-34); FOLATE 11.4 NG/ML (>5.2)
[2016-07-15 06:15] LABS: TROPONIN I 0.25 NG/ML (<0.05)
[2016-07-15 06:36] LABS: PROCALCITONIN 0.13 ng/mL (<0.5)
[2016-07-15 10:05] LABS: HEMATOCRIT 31.4 % (40.0-51.0); HEMOGLOBIN 10.9 g/dL (13.6-17.8)
[2016-07-15 13:03] LABS: HEMATOCRIT 29.6 % (40.0-51.0); HEMOGLOBIN 10.3 g/dL (13.6-17.8)
[2016-07-15 17:34] LABS: HEMATOCRIT 29.6 % (40.0-51.0); HEMOGLOBIN 10.1 g/dL (13.6-17.8)
[2016-07-15 21:25] LABS: HEMATOCRIT 28.1 % (40.0-51.0); HEMOGLOBIN 9.6 g/dL (13.6-17.8)
[2016-07-16 01:48] LABS: HEMOGLOBIN 8.3 g/dL (13.6-17.8)
[2016-07-16 01:51] LABS: HEMATOCRIT 24.6 % (40.0-51.0)
[2016-07-16 06:38] LABS: HEMATOCRIT 23.6 % (40.0-51.0); HEMOGLOBIN 7.9 g/dL (13.6-17.8)
[2016-07-16 08:53] LABS: HEMATOCRIT 23.3 % (40.0-51.0); HEMOGLOBIN 7.9 g/dL (13.6-17.8)
[2016-07-16 12:34] LABS: HEMATOCRIT 25.4 % (40.0-51.0)
[2016-07-16 17:37] LABS: HEMATOCRIT 24.8 % (40.0-51.0); HEMOGLOBIN 8.9 g/dL (13.6-17.8)
[2016-07-16 21:50] LABS: HEMATOCRIT 24.8 % (40.0-51.0); HEMOGLOBIN 8.6 g/dL (13.6-17.8)
[2016-07-17 01:14] LABS: HEMATOCRIT 23.1 % (40.0-51.0); HEMOGLOBIN 8.2 g/dL (13.6-17.8)
[2016-07-17 05:59] LABS: BASOPHILS 0 %; EOSINOPHILS 0 %; HEMOGLOBIN 8.4 g/dL (13.6-17.8); IMMATURE GRANULOCYTES 1.3 %; IMMATURE GRANULOCYTES ABSOLUTE 0.16 10/3/uL (0.0-0.11); LYMPHOCYTES 5.5 %; LYMPHOCYTES ABSOLUTE 0.66 10/3/uL (0.67-4.30); MEAN CORPUSCULAR HEMOGLOB 31.9 pg (26.0-34.0); MEAN CORPUSCULAR VOLUME 91.3 fL (80-100); MEAN PLATELET VOLUME 9.7 fL (9.2-13.0); MONOCYTES 4.5 %; MONOCYTES ABSOLUTE 0.54 10/3/uL (0.21-1.20); NEUTROPHILS 88.7 %; PLATELET COUNT 139 10/3/uL (150-400); RBC DISTRIBUTION WIDTH 15.1 % (12.0-16.0); RED CELL COUNT 2.63 10/6/uL (4.7-6.1); WHITE BLOOD CELLS 12.1 10/3/uL (4.5-10.5)
[2016-07-17 06:00] LABS: MANUAL DIFF NO %
[2016-07-17 06:17] LABS: CALCIUM, SERUM 8.2 MG/DL (8.5-10.4); CHLORIDE, SERUM 107 MMOL/L (96-112); CO2 (CARBON DIOXIDE) 25 MMOL/L (24-34); CREATININE 0.71 MG/DL (0.70-1.30); GFR AFRICAN AMERICAN 121 ML/MIN (>=60); GFR NON AFRICAN AMERICAN 104 ML/MIN (>=60); POTASSIUM, SERUM 4.8 MMOL/L (3.5-5.3); SODIUM, SERUM 140 MMOL/L (135-148)
[2016-07-17 06:18] LABS: BUN (BLOOD UREA NITROGEN) 26 MG/DL (6-23); GLUCOSE, SERUM 109 MG/DL (60-99)
[2016-07-18 03:51] LABS: HEMATOCRIT 24.7 % (40.0-51.0); HEMOGLOBIN 8.9 g/dL (13.6-17.8)
[2016-07-18 04:03] LABS: BUN (BLOOD UREA NITROGEN) 25 MG/DL (6-23); CALCIUM, SERUM 8.1 MG/DL (8.5-10.4); CHLORIDE, SERUM 105 MMOL/L (96-112); CO2 (CARBON DIOXIDE) 26 MMOL/L (24-34); GFR AFRICAN AMERICAN 121 ML/MIN (>=60); GFR NON AFRICAN AMERICAN 105 ML/MIN (>=60); GLUCOSE, SERUM 110 MG/DL (60-99); POTASSIUM, SERUM 4.3 MMOL/L (3.5-5.3); SODIUM, SERUM 138 MMOL/L (135-148)
[2016-07-19] MEDS ORDERED: PROTONIX PO (11:31)
== END 2016-07-19 14:00 | disposition home health service (06) | DRG 378 ==
LOC: ER 20:00 → CVICU 07-15 02:29 → 4EA 07-18 11:18
PROVIDERS: Internal Medicine Critical Care Medicine; Internal Medicine Gastroenterology; Internal Medicine Pulmonary Disease; Nurse Practitioner Acute Care
PROC: 0W3P8ZZ Control Bleeding in Gastrointestinal Tract, Via Natural or Artificial Opening Endoscopic (ICD-10-PCS; principal; 2016-07-16 12:43)
PROC: 30233N1 Transfusion of Nonautologous Red Blood Cells into Peripheral Vein, Percutaneous Approach (ICD-10-PCS; 2016-07-16 12:43)
DX: K25.4 Chronic or unspecified gastric ulcer with hemorrhage (principal); C15.5 Malignant neoplasm of lower third of esophagus; C77.9 Secondary and unspecified malignant neoplasm of lymph node, unspecified; C78.00 Secondary malignant neoplasm of unspecified lung; K22.10 Ulcer of esophagus without bleeding; D62 Acute posthemorrhagic anemia; J44.9 Chronic obstructive pulmonary disease, unspecified; F17.210 Nicotine dependence, cigarettes, uncomplicated; Z51.5 Encounter for palliative care
CPT/HCPCS: 36415; 70450; 71010; 71275; 72125; 74176; 80048; 80053; 82533; 82550; 82607; 82746; 83605; 83735; 84100; 84145; 84443; 84484; 85014; 85018; 85025; 85610; 85730; 86850; 86900; 86901; 86920; 93005; 99291; A9270-GY; C9113; J2405; P9016; Q9967

== ENCOUNTER 2016-07-22 11:58 | Inpatient (IN) | payer OTHER ==
--- NOTE | ~2016-07-22 | OP ---
Record Of Operation [facility] [address] [place]. [address] NAME: JARVIS HOOPER : 58 STATUS : ADM IN [facility]#: [id number] AGE: 56 ADM/REG DATE : 07/22/16 MR#: [id number] REPORT SERV DATE: 07/24/16 DICTATED BY: RONNY BRADSHAW III DATE: 07/22/16 REPORT STATUS : Draft TRANSCRIBED BY: MODL DATE: 07/22/16 DATE OF PROCEDURE: 07/22/2016 PREOPERATIVE DIAGNOSES: Acute peritonitis, perforated viscus, associated with sepsis and acute surgical abdomen; with previous history of stage IV esophageal carcinoma, status post recent radiation therapy. POSTOPERATIVE DIAGNOSES: Perforated distal esophageal cancer and gastrojejunal anastomosis with peritonitis and sepsis. PROCEDURE: Laparotomy, over-sew of perforated gastric cancer with Annabella fundoplication and gastrostomy tube placement. SURGEON: Ronny Bradshaw M.D. ANESTHESIA: General with intubation. COMPLICATIONS: None. ESTIMATED BLOOD LOSS: 50 mL. SPECIMENS: None. DRAINS: Mat-Washburn in abdominal cavity, Liam in subcutaneous tissue, and 14-Upper Sorbian gastrostomy tube in the stomach. LAP AND SPONGE COUNT: Correct x3. BRIEF HISTORY: This 56-year-old male presented emergently to the emergency room with evidence for acute surgical abdomen associated sepsis, peritonitis, and pneumoperitoneum. His radiographic workup suggested possible acute sigmoid diverticulitis as the etiology for his acute condition. 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 He is status post radiation therapy to his cerebral metastasis and primary esophageal cancer. The patient is on high dose steroids apparently for his cerebral metastasis. It was felt that emergent laparotomy was indicated. Radiographically, it was felt that the patient had sigmoid diverticulitis and it was therefore explained that possible sigmoid colectomy with colostomy might be required, depending on operative findings. The fact that this was a major operation in this acutely ill patient with an attempt to save his life was explained. The fact without surgery, his risk for mortality would be close to 100% was explained. The patient and family had questions, which were answered. They clearly understood the risks and agreed to surgery as planned. FINDINGS: This patient had a perforation of his proximal part of his distal esophageal cancer at the gastroesophageal junction, along the lesser curve and the proximal portion of the stomach. This was associated with massive peritonitis. The perforation was some 2 to 3 Record Of Operation [place] [id number] [facility] [place]. [address] NAME: JARVIS HOOPER : 58 STATUS : ADM IN PAT#: [id number] AGE: 56 ADM/REG DATE : 07/22/16 MR#: [id number] REPORT SERV DATE: 07/24/16 DICTATED BY: RONNY BRADSHAW III DATE: 07/22/16 REPORT STATUS : Draft TRANSCRIBED BY: STEVAN DATE: 07/22/16 cm in length. This could not be resected because of the location of the perforation. We therefore elected to close this primarily and buttress the closure with a Annabella fundoplication. It was realized that this closure is at high risk for breakdown. Alternative would be an Tibbie Kwasi esophagogastrectomy which was clearly not indicated in this patient. Transabdominal resection would not be technically possible with clear margins because of the location of the tumor. DESCRIPTION OF PROCEDURE: After being properly identified and after discussing risks of surgery with the patient family again in the preoperative area, the patient was taken to the operating room and placed in the supine position on the operating room table. General anesthesia was administered. He was intubated without difficulty. A Floyd catheter was inserted. The abdomen was prepped and draped sterilely in the usual fashion. After an appropriate "time-out" per JCAHO standards, a midline incision was made, initially beginning just above the umbilicus and continuing distally towards the pubis. The incision was continued through the subcutaneous tissue. Hemostasis was controlled with cautery. The incision was continued through the fascia. The abdominal cavity was entered. We immediately encountered a large amount of tam purulent material. Several liters of fluid was obtained. The cultures were obtained. The lower abdomen was inspected. There was no evidence for perforation of lower abdomen, in particular, the sigmoid colon and left colon were normal with no evidence for this as being the source of the perforation. The material was more consistent with gastric contents and there was food material and food debris within this contents, and therefore the incision was continued caudally to the xiphoid process. The upper abdomen was inspected. The stomach was very dilated. We identified the site of perforation which was along the lesser curve of the proximal stomach at the GE junction. There was a hard palpable tumor in this area where the perforation had occurred. The length of the perforation was some 2 to 3 cm. This was not resectable without thoracotomy, Tibbie Kwasi esophagogastrectomy will be required to resect this and obtain clear margins. This clearly is not indicated in this patient with stage IV disease and in an emergent situation. We elected therefore to mobilize the stomach close this primarily and buttress it with a Annabella fundoplication and decompressing on gastrostomy tube. The greater curve of the stomach was exposed from the mid line of the stomach to the GE junction. This was done by dividing the gastrocolic ligament along the greater curve of the stomach using Harmonic scalpel. The lesser curve of the stomach was similarly exposed with Harmonic scalpel. The proximal stomach was mobilized. The area of the perforation was identified. There was free fluid contents including corn coming from this. The perforation was closed with interrupted 3-0 silk sutures. This resulted in good closure of the perforation. We placed the sutures through healthy material and not through tumor itself. I then Annabella fundoplication was performed by wrapping the stomach posteriorly around itself around the area perforation at 360 degree fashion. This was secured into the stomach with several interrupted 3-0 silk sutures. This was buttressed of the esophagus with 3-0 silk sutures. This resulted in good closure and good repair of the perforation. The area was irrigated copiously with saline. Hemostasis was assured. Evicel glue was placed over the perforation. Hemostasis was meticulously assured. The NG tube was checked and noted to be in good position. A 14-Upper Sorbian gastrostomy tube was brought through a separate stab wound to the left of the incision and placed through a small opening made in the mid body of the stomach through a 3-0 silk pursestring. The pursestring was secured. The exit site of the Record Of Operation [address] [address] NAME: JARVIS HOOPER : 58 STATUS : ADM IN [facility]#: [id number] AGE: 56 ADM/REG DATE : 07/22/16 MR#: [id number] REPORT SERV DATE: 07/24/16 DICTATED BY: RONNY BRADSHAW III DATE: 07/22/16 REPORT STATUS : Draft TRANSCRIBED BY: MODL DATE: 07/22/16 gastrostomy tube from the stomach was secured with interrupted 3-0 silk sutures in a Witzel fashion. This new exit site was secured to the underside of the abdominal wall with 3-0 silk sutures. The balloon was inflated. The entire abdominal cavity was irrigated copiously with saline. Hemostasis was assured. A Mat-Washburn drain was brought through a separate stab wound to the right of the incision and placed in the left upper quadrant near the area of perforation. Hemostasis was assured. The fascia was closed with a running looped #1 PDS suture. The subcutaneous tissue was closed with running 3-0 chromic suture over a Liam drain which was brought through the inferior aspect of the incision. The skin was closed with skin keshav. Dressings were applied, and the patient was taken intubated directly to the intensive care unit. He is in critical condition. He was in septic shock before the procedure. The results of the procedure were discussed with the patient's family. I have explained to the patient that there is high risk for mortality in this setting. ADDENDUM: It should be noted, again there was a large amount of food contents pouring forth from the perforation in the proximal stomach or GE junction. There was a large amount of undigested food coming from this. There was also a definite smell of alcohol noted within this material. RHJ/ANIBALL Ronny Bradshaw III, M.D. / [id number] / [id number] CC: Ronny Bradshaw III, M.D.
--- NOTE | ~2016-07-22 | CN ---
Consultation Report [facility] [address] [place]. [address] NAME: JARVIS HOOPER : 58 STATUS : ADM IN PAT#: [id number] AGE: 56 ADM/REG DATE : 07/22/16 MR#: [id number] REPORT SERV DATE: 07/22/16 DICTATED BY: NANCY GUPTA DATE: 07/22/16 REPORT STATUS : Draft TRANSCRIBED BY: MODL DATE: 07/22/16 CONSULT DATE OF CONSULTATION: 07/22/2016 HISTORY OF PRESENT ILLNESS: This is a 56-year-old patient, known to our service from previous admission on 07/15/2016, at which time, he presented with a GI bleed and dark stools. 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 At that point, he was followed by Gastroenterology. Serial H and Hs were done and he underwent EGD done by Dr. Frye, on the 07/16/2016. The EGD showed esophagitis, esophageal ulcer without any bleeding; however, there was a gastric ulcer with visible vessel at the cardia, which was injected with epinephrine. The patient was then discharged on 07/19/2016. He was seen by palliative care during that admission, and he was to follow up with palliative care on an outpatient basis as well as with Dr. Harris, who is his oncologist. The patient now presents to the emergency room with abdominal pain, nausea, and vomiting, and was suspected to be in septic shock. CT scan of the abdomen was done and showed pneumoperitoneum. The patient was then taken for exploratory laparotomy by Dr. Horton and was found to have perforated esophagus at the site of the tumor and underwent Annabella fundoplication. He had a massive perforation, this was also oversewn. The patient now returns to the MICU on a ventilator and we are asked to manage his care. ALLERGIES: THE PATIENT HAS NO KNOWN DRUG ALLERGIES. HOME MEDICATIONS: Vitamin C, Celexa, Klonopin, Decadron, Duragesic patch, Megace, Reglan, Protonix, and simethicone. OTHER PAST MEDICAL HISTORY: 1. COPD. 2. Bronchitis. 3. Anxiety and depression. 4. Back surgery. 5. Hand surgery. 6. Kidney stone removal. 7. Previous tonsillectomy. 8. History of stage IV esophageal cancer, status post chemotherapy and XRT. 9. Brain mets, on Decadron. SOCIAL HISTORY: The patient lives at home with his family. He has smoked for thirty years at least a pack a day and still continues to smoke on occasion. There also is some history of alcohol intake on a regular basis. FAMILY HISTORY: Significant for small-cell cancer in his father. Prostate cancer in paternal grandfather. Consultation Report [address] [place]. [address] NAME: JARVIS HOOPER : 58 STATUS : ADM IN PAT#: [id number] AGE: 56 ADM/REG DATE : 07/22/16 MR#: [id number] REPORT SERV DATE: 07/22/16 DICTATED BY: NANCY GUPTA DATE: 07/22/16 REPORT STATUS : Draft TRANSCRIBED BY: STEVAN DATE: 07/22/16 REVIEW OF SYSTEMS: Could not be obtained from the patient. PHYSICAL EXAMINATION: GENERAL: The patient is orally intubated. He is still under the influence of anesthesia. VITAL SIGNS: His A-line pressure is 136/80, respiratory rate on a CMV of 10, tidal volume of 500, 5 of PEEP, 100%, O2 saturation 99%, temp is 36.1, heart rate is 118 sinus tach. The patient has a right IJ central line, a right subclavian port, and a left radial A-line. He has a nasogastric tube in place and a GJ tube in place as well. The skin is cool to touch. He is not diaphoretic. HEENT: Head is atraumatic, normocephalic. Pupils are sluggish. Conjunctivae are pale. Sclerae anicteric. Oral mucosa is intubated. NECK: Supple without JVD, lymphadenopathy, or thyromegaly. LUNGS: Shows bilateral chest excursion. Diminished breath sounds at the bases. No wheezing at this time. CARDIAC: Reveals a regular rate and rhythm with no significant murmurs. ABDOMEN: Flat, nondistended with exploratory laparotomy scar with dressing, minimal drainage. A right RASHAAD drain is in place and a GJ tube is in place. He has normal male external genitalia. Floyd is in place. RECTAL: Deferred. EXTREMITIES: Without cyanosis, clubbing, or edema. NEUROLOGIC: Limited secondary to the effect of anesthesia. LABORATORY DATA: Lactic acid level was 4.1. Hemoglobin is 12, hematocrit 35, platelet count is 309,000, white cell count is 13. Sodium 136, potassium 3.6, chloride 103, bicarb 26, BUN 22, creatinine is 0.88, lipase 66. Blood sugar 215. There is no KUB or chest x-ray to confirm placement of the nasogastric tube or the endotracheal tube or line, this will need to be obtained. ASSESSMENT AND PLAN: This is a 56-year-old patient, who has known metastatic esophageal cancer, adenocarcinoma of the distal esophagus with metastatic disease as mentioned above. He now presents with a perforation at the GE junction which is massive. CT scan of the abdomen did show a stomach that was full of food and other debris. For now, we will continue IV fluids, Levophed if necessary. Continue stress dose steroids with Solu-Cortef and at least start Zosyn with possible addition of vanco and/or possibly an anti-fungal if he has persistent fevers. The patient apparently according to anesthesia was quite dry when he came in. So, we will need to repeat lab work now to see if the patient does not need any blood product since he may have dropped his hemoglobin with the IV fluid resuscitation. The patient has a known history of recent GI bleeding. We will apply SCDs for now. Observe H and H and consider adding DVT prophylaxis if the patient is actively bleeding. With regard to his chronic obstructive pulmonary disease, the patient will be placed on bronchodilator protocol. Chest x-ray will be obtained in the morning. The patient is in serious condition. Prognosis is extremely poor. Given the patient's history of metastatic adenocarcinoma, further plans for treatment or not we will have to be discussed with the Consultation Report [address] [place]. [address] NAME: JARVIS HOOPER : 58 STATUS : ADM IN [facility]#: [id number] AGE: 56 ADM/REG DATE : 07/22/16 MR#: [id number] REPORT SERV DATE: 07/22/16 DICTATED BY: NANCY GUPTA DATE: 07/22/16 REPORT STATUS : Draft TRANSCRIBED BY: MODL DATE: 07/22/16 family as well as Hematology/Oncology. The patient for now will require volume resuscitation, frequent vent manipulations and is at risk for further respiratory and renal deterioration as well as neurologic deterioration. Total time spent with this patient was 30 minutes beginning at 05:00 p.m. and ending at 05:30 p.m. for a total time of 30 minutes critical care time. /MODL Nancy Gupta M.D. / [id number] CC: Ulises Horton III, M.D.
--- NOTE | ~2016-07-22 | DS ---
Discharge Summary [facility] [address] [facility] [place]. [address] NAME: JARVIS HOOPER : 58 STATUS : DIS IN PAT#: [id number] AGE: 56 ADM/REG DATE : 07/22/16 MR#: [id number] REPORT SERV DATE: 08/16/16 DICTATED BY: RONNY BRADSHAW III DATE: 08/15/16 REPORT STATUS : Draft TRANSCRIBED BY: STEVAN DATE: 08/15/16 Data Collection from hospitalization DISCHARGE DIAGNOSES: 1. Perforated distal esophageal cancer and gastrojejunal anastomosis with peritonitis and sepsis. 2. Former tobacco use. 3. Chronic obstructive pulmonary disease. 4. History of gastrointestinal bleed. 5. Depression and anxiety. 6. History of diverticulitis. CONSULTATIONS: 1. Yelena Gupta M.D. 2. Marek Harris M.D. 3. Paddy Farfan M.D. PROCEDURES PERFORMED: 1. Laparotomy, over-sew of perforated gastric cancer with Annabella fundoplication and gastrostomy tube placement on 07/22/2016. 2. CT scan of the abdomen and pelvis without contrast on 07/22/2016. MEDICATIONS: Vitamin C 250 mg daily, Celexa 40 mg daily as needed, Klonopin 0.5 mg daily as needed, Duragesic one patch topically every 72 hours, Megace oral suspension 10 mL with meals as needed, Reglan 10 mg daily as needed, Percocet 7.5/325 one tablet three times a day as needed, Protonix 40 mg twice a day, and Mytab Gas 80 mg as needed. CONDITION AT DISCHARGE: Stable. DISPOSITION: The patient was discharged home to be followed by [facility] on a low-fat full liquid diet, which would be advanced as tolerated and activities as instructed. He would follow up with tn on 08/14/2016. He would follow up with his primary care provider as needed. HOSPITAL COURSE: This is a 56-year-old man who presented emergently to the emergency room with evidence for acute surgical abdomen associated sepsis, peritonitis, and pneumoperitoneum. His radiographic workup suggested possible acute sigmoid diverticulitis as the etiology for his acute condition. 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 He is status post radiation therapy to his cerebral metastasis and primary esophageal cancer. He was on high-dose steroids apparently for his cerebral metastasis. Treatment options were discussed and it was elected to proceed with surgical intervention. He was admitted to the hospital for further evaluation and treatment. Upon admission, a CT scan of the abdomen and pelvis without contrast was performed. The patient was taken to the operating room where he underwent the above-mentioned procedure. He tolerated this well, and there were no complications. Postoperatively, he was seen by Dr. Yelena Gupta. CT scan had shown pneumoperitoneum. He had been placed in the MICU on a Discharge Summary [address] [address] NAME: JARVIS HOOPER : 58 STATUS : DIS IN PAT#: [id number] AGE: 56 ADM/REG DATE : 07/22/16 MR#: [id number] REPORT SERV DATE: 08/16/16 DICTATED BY: RONNY BRADSHAW III DATE: 08/15/16 REPORT STATUS : Draft TRANSCRIBED BY: MODDmitri DATE: 08/15/16 ventilator. White count was 13. IV fluids were continued. Levophed would be provided if necessary. We would continue stress dose steroids with Solu-Cortef and at least start Zosyn with possible addition of vancomycin and/or possibly antifungal if he had persistent fevers. Repeat lab work is going to be drawn. SCDs were applied. His prognosis was felt to be extremely poor. On 07/23/2016, the patient was still sedated on the ventilator. Supportive care was continued. He was seen by Dr. Marek Harris. The patient was still intubated on pressors. It was felt that he was not a candidate for chemotherapy at the present time. It was not felt that he would ever be a candidate, unfortunately. Palliative Care was recommended. Levophed was being weaned. He was seen by Palliative Care. Plans were made to speak with the patient after extubation. On 07/24/2016, he had been extubated. He was alert. He was off all pressors agents. He was afebrile. He was seen by Dr. Paddy Farfan with Palliative Care. On 07/25/2016, he was alert and comfortable. TPN therapy was being provided. He had been transfused two units of blood. We continued to recommend hospice care. Fentanyl patch was placed. The patient stated that his comfort and pain management were his primary concerns. He said he had good pain control at this time with fentanyl patch. Morphine was being given for breakthrough pain. He remained strictly n.p.o. TPN therapy continued. A PICC line was inserted. On 07/27/2016, he had mild dyspnea. NG tube was in place. IV fluids were decreased. Potassium supplementation was given. On 07/28/2016, NG tube remained in place. TPN therapy continued. He was evaluated by Physical Therapy. He remained on the fentanyl patch. He did work with Physical Therapy. He was able to ambulate in the room to a chair. Over the next couple of days, he said he was feeling better. He was requesting more ice. Gastrografin swallow study was performed. Platelet count was stable. H and H remained stable. On 07/31/2016, he was very sedated. NG tube was removed. He was started on clear liquids. Narcotics were decreased. O2 saturation was 98% on room air. He had some difficulty communicating and articulating complex ideas. He remained on tube feedings. He was started on full liquids. Blood pressure was controlled. On 08/02/2016, he was tolerating full liquids. He remained afebrile. TPN was being weaned. His appetite was improving. H and H remained stable. He continued to progress. Discharge planning was performed. On 08/05/2016, he had no new complaints. He said he felt well and wanted to go home. He was eating fairly well. He had been ambulating with Physical Therapy. The patient and his family were ready to go home with hospice care. Discharge instructions were given. Due to his improved and stable condition, he was discharged home to be followed by [facility] with the above-stated instructions. Information collected by: Margarita Kerr I submit the above information as my discharge summary. LOBO/MODDmitri Ronny Bradshaw III, M.D. Discharge Summary [address] [address] NAME: JARVIS HOOPER : 58 STATUS : DIS IN [facility]#: [id number] AGE: 56 ADM/REG DATE : 07/22/16 MR#: [id number] REPORT SERV DATE: 08/16/16 DICTATED BY: RONNY BRADSHAW III DATE: 08/15/16 REPORT STATUS : Draft TRANSCRIBED BY: STEVAN DATE: 08/15/16 / [id number] CC: Mark Silva III, M.D.
--- NOTE | ~2016-07-22 | HP ---
History And Physical [address] [place]. [address] NAME: JARVIS HOOPER : 58 STATUS : ADM IN [facility]#: [id number] AGE: 56 ADM/REG DATE : 07/22/16 MR#: [id number] REPORT SERV DATE: 07/22/16 DICTATED BY: RONNY BRADSHAW III DATE: 07/22/16 REPORT STATUS : Draft TRANSCRIBED BY: MODL DATE: 07/22/16 DATE OF ADMISSION: 07/22/2016 HISTORY OF PRESENT ILLNESS: This 56-year-old male is admitted to the hospital emergently with evidence for an acute surgical abdomen. The patient complains of sudden onset of severe abdominal pain. This pain began suddenly this morning. The patient told his family members about the pain, and they apparently waited several hours trying to treat the patient symptomatically. His pain became progressively worse. He was brought to the emergency room, where he was found to have evidence for an acute surgical abdomen or peritonitis, and probable perforated viscus with pneumoperitoneum and sepsis. The patient complains of severe abdominal pain. He is somewhat vague as to the exact location of the pain which is primarily in the lower abdomen. He states that yesterday he was doing well with no similar pain and was asymptomatic. The patient has a history of esophageal cancer, which is currently being treated with radiation therapy and chemotherapy. PAST MEDICAL HISTORY: 1. History of tobacco abuse. 2. History of COPD secondary to tobacco abuse. 3. History of recent admission for GI bleed. This was secondary to gastric ulcer which was treated medically, and the bleeding stopped with nonoperative treatment. 4. History of stage IV esophageal cancer. 5. Suspected cerebral metastases for which the patient has received radiation therapy. MEDICATIONS: As per the medication list. SOCIAL HISTORY: The patient has history of tobacco abuse. He is not . He lives locally. REVIEW OF SYSTEMS: The patient developed dysphagia earlier this year. He underwent endoscopy on 05/28/2016, and was found to have an obstructing mass in the lower esophagus. His dysphagia has resolved since radiation therapy was started. He did have a jejunal feeding tube which was removed as the dysphagia was resolved, and the patient insisted on it being removed. His workup on 05/28/2016 showed evidence for intermittent small pulmonary nodules of concern for metastatic disease. ALLERGIES: NONE. PHYSICAL EXAMINATION: GENERAL: This is a male, who appears acutely ill. He is alert and oriented. VITAL SIGNS: Blood pressure 122/75, temperature 98.4, and pulse is 130. History And Physical [address] [address] NAME: JARVIS HOOPER : 58 STATUS : ADM IN [facility]#: [id number] AGE: 56 ADM/REG DATE : 07/22/16 MR#: [id number] REPORT SERV DATE: 07/22/16 DICTATED BY: RONNY BRADSHAW III DATE: 07/22/16 REPORT STATUS : Draft TRANSCRIBED BY: STEVAN DATE: 07/22/16 HEENT: Unremarkable. CRANIOCERVICAL: Normal. LUNGS: Clear. CARDIAC: Normal. ABDOMEN: Rigid with marked diffuse tenderness with guarding and peritoneal signs. The tenderness appears to be worse in the left lower quadrant. EXTREMITIES: Normal. LABORATORY DATA: White blood cell count 13.4, hematocrit 35. Electrolytes are remarkable for a glucose of 215. CT scan of the abdomen and pelvis which I reviewed shows evidence for pneumoperitoneum that was also suspected to be sigmoid or left colonic diverticulitis and diverticulosis. Stable bibasilar pulmonary nodules were seen. PET scan in May of this year showed multiple FDG avid, celiac and retroperitoneal lymph nodes, and numerous bilateral subcentimeter pulmonary nodules with FDG avidity. ASSESSMENT: 1. 56-year-old male with acute surgical abdomen, most likely secondary to perforated diverticulitis, although as the patient has had a bleeding gastric ulcer, this could be related to a perforated ulcer or other etiology. 2. History of stage IV esophageal cancer, pulmonary and possible cerebral metastases as above. 3. Chronic obstructive pulmonary disease secondary to tobacco abuse. 4. Tobacco abuse. PLAN: The patient has been admitted, and was taken emergently to the operating room for laparotomy with appropriate intervention, which will probably require sigmoid colectomy with colostomy. This procedure, the risks, benefits, and alternatives, including but not limited to the risk for bleeding, infection, enterotomy, injury to any abdominal structure, postop small bowel obstruction, ileus, incisional hernia, dehiscence, possible need for colostomy, ureteral injury, and unforeseen complications including deep venous thrombosis, pulmonary embolus, myocardial infarction, stroke, pneumonia, anesthetic complications, prolonged ventilator dependency, and have been fully and completely explained to the patient's family at length. The fact that this is a major operation in attempt to save the patient's life and without surgery in this setting, his chance for his survival is essentially 0 has been explained. The fact that he is at marked increased risk for complications including wound failure, wound dehiscence, and infectious complications due to his underlying malignancy, and recent radiation therapy and chemotherapy has been explained. The patient's questions have been answered. He clearly understands the risks and agrees to the surgery as planned. APRIL/STEVAN Ronny Bradshaw III, M.D. History And Physical [address] [address] NAME: JARVIS HOOPER : 58 STATUS : ADM IN [facility]#: [id number] AGE: 56 ADM/REG DATE : 07/22/16 MR#: [id number] REPORT SERV DATE: 07/22/16 DICTATED BY: RONNY BRADSHAW III DATE: 07/22/16 REPORT STATUS : Draft TRANSCRIBED BY: STEVAN DATE: 07/22/16 / [id number] CC: Ronny Bradshaw III, M.D.
[2016-07-22 09:53] LABS: BASOPHILS 0.1 %; BASOPHILS ABSOLUTE 0.01 10/3/uL (0.0-0.16); EOSINOPHILS 0.4 %; EOSINOPHILS ABSOLUTE 0.06 10/3/uL (0.0-0.53); IMMATURE GRANULOCYTES 0.7 %; IMMATURE GRANULOCYTES ABSOLUTE 0.09 10/3/uL (0.0-0.11); LYMPHOCYTES 2.5 %; LYMPHOCYTES ABSOLUTE 0.33 10/3/uL (0.67-4.30); MEAN CORPUS HGB CONC 34.7 g/dL (32.0-36.0); MEAN PLATELET VOLUME 9.5 fL (9.2-13.0); MONOCYTES 3.2 %; MONOCYTES ABSOLUTE 0.43 10/3/uL (0.21-1.20); NEUTROPHILS 93.1 %; NEUTROPHILS ABSOLUTE 12.51 10/3/uL (2.02-8.40); WHITE BLOOD CELLS 13.4 10/3/uL (4.5-10.5)
[2016-07-22 09:54] LABS: HEMATOCRIT 35.7 % (40.0-51.0); HEMOGLOBIN 12.4 g/dL (13.6-17.8); MANUAL DIFF NO %; PLATELET COUNT 309 10/3/uL (150-400); RED CELL COUNT 3.88 10/6/uL (4.7-6.1)
[2016-07-22 10:09] LABS: A/G RATIO 0.8 (0.7-1.9); ALBUMIN 2.7 G/DL (3.5-5.0); ALKALINE PHOSPHATASE 67 U/L (45-117); BUN (BLOOD UREA NITROGEN) 22 MG/DL (6-23); CALCIUM, SERUM 8.9 MG/DL (8.5-10.4); CHLORIDE, SERUM 103 MMOL/L (96-112); CO2 (CARBON DIOXIDE) 26 MMOL/L (24-34); CREATININE 0.88 MG/DL (0.70-1.30); GFR AFRICAN AMERICAN 111 ML/MIN (>=60); GFR NON AFRICAN AMERICAN 95 ML/MIN (>=60); GLOBULIN 3.2 G/DL (2.5-4.1); POTASSIUM, SERUM 3.6 MMOL/L (3.5-5.3); SGOT(AST) 14 U/L (5-40); SGPT(ALT) 27 U/L (5-65); SODIUM, SERUM 136 MMOL/L (135-148); TOTAL BILIRUBIN 0.4 MG/DL (0-1.2); TOTAL PROTEIN 5.9 G/DL (6.0-8.5)
[2016-07-22 10:10] LABS: GLUCOSE, SERUM 215 MG/DL (60-99)
[~2016-07-22 11:58] MED LIST changes: +CELEXA40 MG PO; +MULTIVITAMI1 PO; +PROTONIX PO; +REG5 PO
[2016-07-22] MEDS ORDERED: REG PO (12:15)
[2016-07-22 12:23] LABS: LACTATE 4.1 MMOL/L (0.3-2.4)
[2016-07-22 17:43] LABS: CARBOXYHEMOGLOBIN 0.6 % (0-3); HCO3 (ACTUAL BICARBONATE) 16.4 MEQ/L (23-27); HEMOBLOGIN CONTENT 12.1 G/DL (14-18); INSTRUMENT SERIAL # 8083; METHEMOGLOBIN 0.3 % (0-3); MODE CMV; O2 CONTENT 18.3 VOL% (18-24); OPERATOR ID 14382; PCO2 (CO2 TENSION) 42 MMHG (35-45); PO2 (O2 TENSION) 532 MMHG (79-93); SAMPLE Arterial; TIDAL VOLUME 500 ML; pH 7.21 (7.37-7.43)
[2016-07-22 20:22] LABS: BASOPHILS 0.3 %; BASOPHILS ABSOLUTE 0.01 10/3/uL (0.0-0.16); EOSINOPHILS 0 %; HEMATOCRIT 34.5 % (40.0-51.0); HEMOGLOBIN 11.6 g/dL (13.6-17.8); IMMATURE GRANULOCYTES 1.4 %; IMMATURE GRANULOCYTES ABSOLUTE 0.05 10/3/uL (0.0-0.11); LYMPHOCYTES 6.2 %; LYMPHOCYTES ABSOLUTE 0.23 10/3/uL (0.67-4.30); MEAN CORPUS HGB CONC 33.6 g/dL (32.0-36.0); MONOCYTES ABSOLUTE 0.11 10/3/uL (0.21-1.20); NEUTROPHILS 89.1 %; NEUTROPHILS ABSOLUTE 3.29 10/3/uL (2.02-8.40); NUCLEATED RED BLOOD CELLS 0.8 /100WBC (0-0); PLATELET COUNT 232 10/3/uL (150-400); RED CELL COUNT 3.63 10/6/uL (4.7-6.1)
[2016-07-22 20:23] LABS: MANUAL DIFF NO %; WHITE BLOOD CELLS 3.7 10/3/uL (4.5-10.5)
[2016-07-22 20:24] LABS: BUN (BLOOD UREA NITROGEN) 21 MG/DL (6-23); CHLORIDE, SERUM 112 MMOL/L (96-112); CO2 (CARBON DIOXIDE) 22 MMOL/L (24-34); CREATININE 0.88 MG/DL (0.70-1.30); GFR AFRICAN AMERICAN 111 ML/MIN (>=60); GFR NON AFRICAN AMERICAN 95 ML/MIN (>=60); POTASSIUM, SERUM 4.3 MMOL/L (3.5-5.3); SODIUM, SERUM 142 MMOL/L (135-148)
[2016-07-22 20:27] LABS: CALCIUM, SERUM 7.3 MG/DL (8.5-10.4); GLUCOSE, SERUM 145 MG/DL (60-99); PHOSPHORUS, SERUM 4.2 MG/DL (2.5-4.5)
[2016-07-22 20:44] LABS: PROCALCITONIN 14.84 ng/mL (<0.5)
[2016-07-22 23:34] LABS: BE (BASE EXCESS) -6.5 MEQ/L (0 +/- 2.5); CARBOXYHEMOGLOBIN 0.6 % (0-3); HCO3 (ACTUAL BICARBONATE) 15.5 MEQ/L (23-27); HEMOBLOGIN CONTENT 11.8 G/DL (14-18); INSTRUMENT SERIAL # 8083; METHEMOGLOBIN 0.2 % (0-3); O2 CONTENT 16.8 VOL% (18-24); OPERATOR ID 17370; PCO2 (CO2 TENSION) 22 MMHG (35-45); PO2 (O2 TENSION) 204 MMHG (79-93); PRESSURE SUPPORT 15 cm.H2O; SAMPLE Arterial; pH 7.46 (7.37-7.43)
[2016-07-23 03:33] LABS: CARBOXYHEMOGLOBIN 0.5 % (0-3); HCO3 (ACTUAL BICARBONATE) 16.4 MEQ/L (23-27); HEMOBLOGIN CONTENT 10.9 G/DL (14-18); INSTRUMENT SERIAL # 8083; METHEMOGLOBIN 0.3 % (0-3); O2 CONTENT 15.6 VOL% (18-24); OPERATOR ID 17370; PCO2 (CO2 TENSION) 21 MMHG (35-45); PO2 (O2 TENSION) 206 MMHG (79-93); PRESSURE SUPPORT 15 cm.H2O; SAMPLE Arterial; pH 7.51 (7.37-7.43)
[2016-07-23 05:29] LABS: HEMATOCRIT 29.6 % (40.0-51.0); HEMOGLOBIN 10.1 g/dL (13.6-17.8); MANUAL DIFF YES %; MEAN CORPUS HGB CONC 34.1 g/dL (32.0-36.0); MEAN CORPUSCULAR HEMOGLOB 31.9 pg (26.0-34.0); MEAN CORPUSCULAR VOLUME 93.4 fL (80-100); MEAN PLATELET VOLUME 9.8 fL (9.2-13.0); PLATELET COUNT 195 10/3/uL (150-400); RBC DISTRIBUTION WIDTH 16.1 % (12.0-16.0); RED CELL COUNT 3.17 10/6/uL (4.7-6.1); WHITE BLOOD CELLS 6.8 10/3/uL (4.5-10.5)
[2016-07-23 05:46] LABS: BUN (BLOOD UREA NITROGEN) 22 MG/DL (6-23); CALCIUM, SERUM 7.8 MG/DL (8.5-10.4); CHLORIDE, SERUM 109 MMOL/L (96-112); CO2 (CARBON DIOXIDE) 19 MMOL/L (24-34); CREATININE 1.05 MG/DL (0.70-1.30); GFR AFRICAN AMERICAN 91 ML/MIN (>=60); GFR NON AFRICAN AMERICAN 78 ML/MIN (>=60); POTASSIUM, SERUM 5.1 MMOL/L (3.5-5.3); SGOT(AST) 100 U/L (5-40); SGPT(ALT) 126 U/L (5-65); SODIUM, SERUM 138 MMOL/L (135-148); TOTAL BILIRUBIN 0.4 MG/DL (0-1.2)
[2016-07-23 05:51] LABS: A/G RATIO 0.9 (0.7-1.9); ALBUMIN 1.9 G/DL (3.5-5.0); ALKALINE PHOSPHATASE 36 U/L (45-117); GLOBULIN 2.1 G/DL (2.5-4.1); GLUCOSE, SERUM 273 MG/DL (60-99); PHOSPHORUS, SERUM 2.7 MG/DL (2.5-4.5)
[2016-07-23 05:52] LABS: BAND NEUTROPHILS 32 %; LYMPHOCYTES 3 %; TOTAL NUCLEATED CELLS 100
[2016-07-23 05:53] LABS: BURR CELLS 1+ (3-10/OIF) (0-2/OIF); PLATELET ESTIMATE ADQ (ADEQUATE); SEGMENTED NEUTROPHIL (0) 65 %
[2016-07-23 08:25] LABS: BE (BASE EXCESS) -3.3 MEQ/L (0 +/- 2.5); CARBOXYHEMOGLOBIN 0.3 % (0-3); HCO3 (ACTUAL BICARBONATE) 19.1 MEQ/L (23-27); HEMOBLOGIN CONTENT 9.9 G/DL (14-18); INSTRUMENT SERIAL # 8083; METHEMOGLOBIN 0.1 % (0-3); MODE CPAP/PS; O2 CONTENT 14.3 VOL% (18-24); OPERATOR ID 14382; PCO2 (CO2 TENSION) 26 MMHG (35-45); PO2 (O2 TENSION) 211 MMHG (79-93); PRESSURE SUPPORT 5 cm.H2O; SAMPLE Arterial; pH 7.49 (7.37-7.43)
[2016-07-24 05:52] LABS: A/G RATIO 0.9 (0.7-1.9); ALBUMIN 1.8 G/DL (3.5-5.0); ALKALINE PHOSPHATASE 36 U/L (45-117); BUN (BLOOD UREA NITROGEN) 16 MG/DL (6-23); CALCIUM, SERUM 7.7 MG/DL (8.5-10.4); CHLORIDE, SERUM 109 MMOL/L (96-112); CO2 (CARBON DIOXIDE) 25 MMOL/L (24-34); CREATININE 0.56 MG/DL (0.70-1.30); DIRECT BILIRUBIN 0.1 MG/DL (0.0-0.4); GFR AFRICAN AMERICAN 133 ML/MIN (>=60); GFR NON AFRICAN AMERICAN 115 ML/MIN (>=60); GLOBULIN 2.1 G/DL (2.5-4.1); GLUCOSE, SERUM 164 MG/DL (60-99); INDIRECT BILIRUBIN(NOT ORDER) 0.2 MG/DL (0.1-0.9); PHOSPHORUS, SERUM 1.4 MG/DL (2.5-4.5); POTASSIUM, SERUM 3.5 MMOL/L (3.5-5.3); PREALBUMIN 9.5 MG/DL (17.0-43.0); SGOT(AST) 75 U/L (5-40); SGPT(ALT) 129 U/L (5-65); SODIUM, SERUM 140 MMOL/L (135-148); TOTAL BILIRUBIN 0.3 MG/DL (0-1.2); TOTAL PROTEIN 3.9 G/DL (6.0-8.5); TRIGLYCERIDE 74 MG/DL (< 150)
[2016-07-24 06:21] LABS: BASOPHILS 0 %; EOSINOPHILS 0 %; IMMATURE GRANULOCYTES 0.7 %; IMMATURE GRANULOCYTES ABSOLUTE 0.06 10/3/uL (0.0-0.11); LYMPHOCYTES 1.3 %; LYMPHOCYTES ABSOLUTE 0.11 10/3/uL (0.67-4.30); MEAN CORPUS HGB CONC 34.7 g/dL (32.0-36.0); MEAN CORPUSCULAR HEMOGLOB 32.4 pg (26.0-34.0); MEAN CORPUSCULAR VOLUME 93.2 fL (80-100); MEAN PLATELET VOLUME 9.3 fL (9.2-13.0); MONOCYTES 1.6 %; MONOCYTES ABSOLUTE 0.13 10/3/uL (0.21-1.20); NEUTROPHILS 96.4 %; NEUTROPHILS ABSOLUTE 7.94 10/3/uL (2.02-8.40); RBC DISTRIBUTION WIDTH 15.7 % (12.0-16.0); WHITE BLOOD CELLS 8.2 10/3/uL (4.5-10.5)
[2016-07-24 06:25] LABS: HEMATOCRIT 19.3 % (40.0-51.0); HEMOGLOBIN 6.7 g/dL (13.6-17.8); MANUAL DIFF NO %; PLATELET COUNT 113 10/3/uL (150-400); RED CELL COUNT 2.07 10/6/uL (4.7-6.1)
[2016-07-24 07:07] LABS: PROCALCITONIN 5.49 ng/mL (<0.5)
[2016-07-24 14:56] LABS: HEMOGLOBIN 7.9 g/dL (13.6-17.8)
[2016-07-24 21:01] LABS: HEMOGLOBIN 8.3 g/dL (13.6-17.8)
[2016-07-24 21:07] LABS: INTERNATIONAL NORMAL RATI 1.2 UNITS (-); PROTIME (NOT ORD) 14.9 SEC (12.0-14.5)
[2016-07-25 04:24] LABS: BASOPHILS 0 %; EOSINOPHILS 0 %; HEMATOCRIT 23.2 % (40.0-51.0); HEMOGLOBIN 8.1 g/dL (13.6-17.8); IMMATURE GRANULOCYTES 0.4 %; IMMATURE GRANULOCYTES ABSOLUTE 0.04 10/3/uL (0.0-0.11); LYMPHOCYTES 1.3 %; LYMPHOCYTES ABSOLUTE 0.13 10/3/uL (0.67-4.30); MANUAL DIFF NO %; MEAN CORPUS HGB CONC 34.9 g/dL (32.0-36.0); MEAN CORPUSCULAR HEMOGLOB 30.7 pg (26.0-34.0); MEAN CORPUSCULAR VOLUME 87.9 fL (80-100); MEAN PLATELET VOLUME 9.3 fL (9.2-13.0); NEUTROPHILS 97.3 %; NEUTROPHILS ABSOLUTE 9.66 10/3/uL (2.02-8.40); PLATELET COUNT 93 10/3/uL (150-400); RBC DISTRIBUTION WIDTH 18.6 % (12.0-16.0); RED CELL COUNT 2.64 10/6/uL (4.7-6.1); WHITE BLOOD CELLS 9.9 10/3/uL (4.5-10.5)
[2016-07-25 04:28] LABS: INTERNATIONAL NORMAL RATI 1.2 UNITS (-); PROTIME (NOT ORD) 15.1 SEC (12.0-14.5)
[2016-07-25 04:42] LABS: A/G RATIO 0.7 (0.7-1.9); ALBUMIN 1.8 G/DL (3.5-5.0); ALKALINE PHOSPHATASE 38 U/L (45-117); BUN (BLOOD UREA NITROGEN) 15 MG/DL (6-23); CALCIUM, SERUM 8.1 MG/DL (8.5-10.4); CHLORIDE, SERUM 101 MMOL/L (96-112); CO2 (CARBON DIOXIDE) 25 MMOL/L (24-34); CREATININE 0.48 MG/DL (0.70-1.30); GFR AFRICAN AMERICAN 142 ML/MIN (>=60); GFR NON AFRICAN AMERICAN 122 ML/MIN (>=60); GLOBULIN 2.7 G/DL (2.5-4.1); GLUCOSE, SERUM 135 MG/DL (60-99); PHOSPHORUS, SERUM 1.8 MG/DL (2.5-4.5); POTASSIUM, SERUM 2.9 MMOL/L (3.5-5.3); SGOT(AST) 45 U/L (5-40); SGPT(ALT) 96 U/L (5-65); SODIUM, SERUM 134 MMOL/L (135-148); TOTAL BILIRUBIN 0.5 MG/DL (0-1.2); TOTAL PROTEIN 4.5 G/DL (6.0-8.5)
[2016-07-25 18:32] LABS: HEMATOCRIT 29.9 % (40.0-51.0); HEMOGLOBIN 10.2 g/dL (13.6-17.8)
[2016-07-25 18:48] LABS: VANCOMYCIN TROUGH 10.8 MCG/ML (10.0-20.0)
[2016-07-25 18:49] LABS: PHOSPHORUS, SERUM 2.5 MG/DL (2.5-4.5); POTASSIUM, SERUM 3.6 MMOL/L (3.5-5.3)
[2016-07-26 05:04] LABS: BASOPHILS 0.1 %; BASOPHILS ABSOLUTE 0.01 10/3/uL (0.0-0.16); EOSINOPHILS 0 %; HEMATOCRIT 29.8 % (40.0-51.0); HEMOGLOBIN 10.1 g/dL (13.6-17.8); IMMATURE GRANULOCYTES 0.2 %; IMMATURE GRANULOCYTES ABSOLUTE 0.02 10/3/uL (0.0-0.11); LYMPHOCYTES 1.8 %; LYMPHOCYTES ABSOLUTE 0.18 10/3/uL (0.67-4.30); MANUAL DIFF NO %; MEAN CORPUS HGB CONC 33.9 g/dL (32.0-36.0); MEAN CORPUSCULAR HEMOGLOB 30.2 pg (26.0-34.0); MEAN CORPUSCULAR VOLUME 89.2 fL (80-100); MEAN PLATELET VOLUME 10.1 fL (9.2-13.0); NEUTROPHILS 96.9 %; NEUTROPHILS ABSOLUTE 9.53 10/3/uL (2.02-8.40); PLATELET COUNT 91 10/3/uL (150-400); RED CELL COUNT 3.34 10/6/uL (4.7-6.1); WHITE BLOOD CELLS 9.8 10/3/uL (4.5-10.5)
[2016-07-26 05:17] LABS: CALCIUM, SERUM 8.2 MG/DL (8.5-10.4); CHLORIDE, SERUM 111 MMOL/L (96-112); CO2 (CARBON DIOXIDE) 26 MMOL/L (24-34); CREATININE 0.46 MG/DL (0.70-1.30); GFR AFRICAN AMERICAN 144 ML/MIN (>=60); GFR NON AFRICAN AMERICAN 124 ML/MIN (>=60); PHOSPHORUS, SERUM 2.7 MG/DL (2.5-4.5); POTASSIUM, SERUM 3.8 MMOL/L (3.5-5.3); PREALBUMIN 10.8 MG/DL (17.0-43.0); TRIGLYCERIDE 76 MG/DL (< 150)
[2016-07-26 05:19] LABS: BUN (BLOOD UREA NITROGEN) 20 MG/DL (6-23); GLUCOSE, SERUM 135 MG/DL (60-99); SODIUM, SERUM 144 MMOL/L (135-148)
[2016-07-26 10:34] LABS: HEMATOCRIT 29.6 % (40.0-51.0)
[2016-07-27 06:49] LABS: BASOPHILS 0.3 %; BASOPHILS ABSOLUTE 0.02 10/3/uL (0.0-0.16); EOSINOPHILS 0 %; HEMATOCRIT 31.9 % (40.0-51.0); HEMOGLOBIN 10.5 g/dL (13.6-17.8); IMMATURE GRANULOCYTES 0.5 %; IMMATURE GRANULOCYTES ABSOLUTE 0.04 10/3/uL (0.0-0.11); LYMPHOCYTES 2.5 %; MANUAL DIFF NO %; MEAN CORPUS HGB CONC 32.9 g/dL (32.0-36.0); MEAN CORPUSCULAR HEMOGLOB 29.7 pg (26.0-34.0); MEAN CORPUSCULAR VOLUME 90.4 fL (80-100); MEAN PLATELET VOLUME 10.3 fL (9.2-13.0); MONOCYTES 1.1 %; MONOCYTES ABSOLUTE 0.09 10/3/uL (0.21-1.20); NEUTROPHILS 95.6 %; NEUTROPHILS ABSOLUTE 7.57 10/3/uL (2.02-8.40); NUCLEATED RED BLOOD CELLS 0.3 /100WBC (0-0); PLATELET COUNT 88 10/3/uL (150-400); RBC DISTRIBUTION WIDTH 17.4 % (12.0-16.0); RED CELL COUNT 3.53 10/6/uL (4.7-6.1); WHITE BLOOD CELLS 7.9 10/3/uL (4.5-10.5)
[2016-07-27 06:51] LABS: INTERNATIONAL NORMAL RATI 1.3 UNITS (-); PARTIAL THROMBO TIME 25.5 SEC (22.5-37.2); PROTIME (NOT ORD) 16.1 SEC (12.0-14.5)
[2016-07-27 06:59] LABS: A/G RATIO 0.5 (0.7-1.9); ALBUMIN 1.5 G/DL (3.5-5.0); CALCIUM, SERUM 7.7 MG/DL (8.5-10.4); CHLORIDE, SERUM 108 MMOL/L (96-112); CO2 (CARBON DIOXIDE) 26 MMOL/L (24-34); CREATININE 0.42 MG/DL (0.70-1.30); GFR AFRICAN AMERICAN 150 ML/MIN (>=60); GFR NON AFRICAN AMERICAN 129 ML/MIN (>=60); GLOBULIN 3.2 G/DL (2.5-4.1); GLUCOSE, SERUM 126 MG/DL (60-99); PHOSPHORUS, SERUM 2.1 MG/DL (2.5-4.5); POTASSIUM, SERUM 3.1 MMOL/L (3.5-5.3); SGOT(AST) 40 U/L (5-40); SGPT(ALT) 70 U/L (5-65); SODIUM, SERUM 143 MMOL/L (135-148); TOTAL BILIRUBIN 0.7 MG/DL (0-1.2); TOTAL PROTEIN 4.7 G/DL (6.0-8.5)
[2016-07-27 07:00] LABS: ALKALINE PHOSPHATASE 65 U/L (45-117); BUN (BLOOD UREA NITROGEN) 16 MG/DL (6-23)
[2016-07-28 06:00] LABS: BASOPHILS 0 %; EOSINOPHILS 0.4 %; EOSINOPHILS ABSOLUTE 0.02 10/3/uL (0.0-0.53); HEMATOCRIT 31.3 % (40.0-51.0); HEMOGLOBIN 10.8 g/dL (13.6-17.8); IMMATURE GRANULOCYTES 0.2 %; IMMATURE GRANULOCYTES ABSOLUTE 0.01 10/3/uL (0.0-0.11); LYMPHOCYTES 4.2 %; LYMPHOCYTES ABSOLUTE 0.23 10/3/uL (0.67-4.30); MEAN CORPUS HGB CONC 34.5 g/dL (32.0-36.0); MEAN CORPUSCULAR HEMOGLOB 30.4 pg (26.0-34.0); MEAN CORPUSCULAR VOLUME 88.2 fL (80-100); MEAN PLATELET VOLUME 10.6 fL (9.2-13.0); MONOCYTES 1.3 %; MONOCYTES ABSOLUTE 0.07 10/3/uL (0.21-1.20); NEUTROPHILS 93.9 %; NEUTROPHILS ABSOLUTE 5.17 10/3/uL (2.02-8.40); PLATELET COUNT 87 10/3/uL (150-400); RBC DISTRIBUTION WIDTH 16.6 % (12.0-16.0); RED CELL COUNT 3.55 10/6/uL (4.7-6.1); WHITE BLOOD CELLS 5.5 10/3/uL (4.5-10.5)
[2016-07-28 06:03] LABS: MANUAL DIFF NO %
[2016-07-28 06:09] LABS: A/G RATIO 0.5 (0.7-1.9); ALBUMIN 1.6 G/DL (3.5-5.0); ALKALINE PHOSPHATASE 67 U/L (45-117); BUN (BLOOD UREA NITROGEN) 16 MG/DL (6-23); CALCIUM, SERUM 7.7 MG/DL (8.5-10.4); CHLORIDE, SERUM 105 MMOL/L (96-112); CO2 (CARBON DIOXIDE) 30 MMOL/L (24-34); CREATININE 0.42 MG/DL (0.70-1.30); GFR AFRICAN AMERICAN 150 ML/MIN (>=60); GFR NON AFRICAN AMERICAN 129 ML/MIN (>=60); GLOBULIN 3.2 G/DL (2.5-4.1); GLUCOSE, SERUM 110 MG/DL (60-99); PHOSPHORUS, SERUM 2.2 MG/DL (2.5-4.5); SGOT(AST) 21 U/L (5-40); SGPT(ALT) 52 U/L (5-65); SODIUM, SERUM 142 MMOL/L (135-148); TOTAL BILIRUBIN 0.5 MG/DL (0-1.2); TOTAL PROTEIN 4.8 G/DL (6.0-8.5)
[2016-07-28 06:13] LABS: INTERNATIONAL NORMAL RATI 1.3 UNITS (-); PARTIAL THROMBO TIME 32.6 SEC (22.5-37.2); PROTIME (NOT ORD) 16.3 SEC (12.0-14.5)
[2016-07-28 06:22] LABS: POTASSIUM, SERUM 2.6 MMOL/L (3.5-5.3)
[2016-07-28 18:05] LABS: POTASSIUM, SERUM 3.4 MMOL/L (3.5-5.3)
[2016-07-29 06:31] LABS: HEMATOCRIT 31.7 % (40.0-51.0); HEMOGLOBIN 10.6 g/dL (13.6-17.8); MEAN CORPUS HGB CONC 33.4 g/dL (32.0-36.0); MEAN CORPUSCULAR HEMOGLOB 29.9 pg (26.0-34.0); MEAN CORPUSCULAR VOLUME 89.3 fL (80-100); MEAN PLATELET VOLUME 10.4 fL (9.2-13.0); PLATELET COUNT 87 10/3/uL (150-400); RBC DISTRIBUTION WIDTH 17.1 % (12.0-16.0); RED CELL COUNT 3.55 10/6/uL (4.7-6.1); WHITE BLOOD CELLS 6.1 10/3/uL (4.5-10.5)
[2016-07-29 06:33] LABS: MANUAL DIFF YES %
[2016-07-29 06:47] LABS: A/G RATIO 0.5 (0.7-1.9); ALBUMIN 1.5 G/DL (3.5-5.0); ALKALINE PHOSPHATASE 68 U/L (45-117); CALCIUM, SERUM 7.9 MG/DL (8.5-10.4); CHLORIDE, SERUM 111 MMOL/L (96-112); CO2 (CARBON DIOXIDE) 26 MMOL/L (24-34); CREATININE 0.46 MG/DL (0.70-1.30); GFR AFRICAN AMERICAN 144 ML/MIN (>=60); GFR NON AFRICAN AMERICAN 124 ML/MIN (>=60); GLOBULIN 3.3 G/DL (2.5-4.1); GLUCOSE, SERUM 123 MG/DL (60-99); PHOSPHORUS, SERUM 2.2 MG/DL (2.5-4.5); POTASSIUM, SERUM 3.4 MMOL/L (3.5-5.3); SGOT(AST) 20 U/L (5-40); SGPT(ALT) 41 U/L (5-65); SODIUM, SERUM 139 MMOL/L (135-148); TOTAL BILIRUBIN 0.7 MG/DL (0-1.2); TOTAL PROTEIN 4.8 G/DL (6.0-8.5); TRIGLYCERIDE 69 MG/DL (< 150)
[2016-07-29 06:48] LABS: BUN (BLOOD UREA NITROGEN) 21 MG/DL (6-23)
[2016-07-29 06:53] LABS: ANISOCYTOSIS 1+ (5-10/OIF) (0-5/OIF); BAND NEUTROPHILS 17 %; PLATELET ESTIMATE DEC (ADEQUATE); SEGMENTED NEUTROPHIL (0) 83 %; TOTAL NUCLEATED CELLS 100
[2016-07-29 06:54] LABS: POLYCHROMASIA 1+ (2-5/OIF) (0-1/OIF); TOXIC GRANULATION 1+
[2016-07-29 21:47] LABS: PHOSPHORUS, SERUM 2.7 MG/DL (2.5-4.5); POTASSIUM, SERUM 3.4 MMOL/L (3.5-5.3)
[2016-07-30 06:28] LABS: CALCIUM, SERUM 7.7 MG/DL (8.5-10.4); CHLORIDE, SERUM 115 MMOL/L (96-112); CO2 (CARBON DIOXIDE) 26 MMOL/L (24-34); CREATININE 0.47 MG/DL (0.70-1.30); GFR AFRICAN AMERICAN 143 ML/MIN (>=60); GFR NON AFRICAN AMERICAN 123 ML/MIN (>=60); GLUCOSE, SERUM 114 MG/DL (60-99); PHOSPHORUS, SERUM 2.5 MG/DL (2.5-4.5); POTASSIUM, SERUM 3.7 MMOL/L (3.5-5.3)
[2016-07-30 06:29] LABS: BUN (BLOOD UREA NITROGEN) 26 MG/DL (6-23); SODIUM, SERUM 146 MMOL/L (135-148)
[2016-07-31 06:52] LABS: BASOPHILS 0.3 %; BASOPHILS ABSOLUTE 0.01 10/3/uL (0.0-0.16); EOSINOPHILS 2.4 %; EOSINOPHILS ABSOLUTE 0.09 10/3/uL (0.0-0.53); HEMATOCRIT 28.7 % (40.0-51.0); HEMOGLOBIN 9.4 g/dL (13.6-17.8); IMMATURE GRANULOCYTES 0.5 %; IMMATURE GRANULOCYTES ABSOLUTE 0.02 10/3/uL (0.0-0.11); LYMPHOCYTES 6.6 %; LYMPHOCYTES ABSOLUTE 0.25 10/3/uL (0.67-4.30); MANUAL DIFF NO %; MEAN CORPUS HGB CONC 32.8 g/dL (32.0-36.0); MEAN CORPUSCULAR HEMOGLOB 29.9 pg (26.0-34.0); MEAN CORPUSCULAR VOLUME 91.4 fL (80-100); MEAN PLATELET VOLUME 11.1 fL (9.2-13.0); MONOCYTES 2.1 %; MONOCYTES ABSOLUTE 0.08 10/3/uL (0.21-1.20); NEUTROPHILS 88.1 %; NEUTROPHILS ABSOLUTE 3.32 10/3/uL (2.02-8.40); PLATELET COUNT 99 10/3/uL (150-400); RBC DISTRIBUTION WIDTH 17.2 % (12.0-16.0); RED CELL COUNT 3.14 10/6/uL (4.7-6.1); WHITE BLOOD CELLS 3.8 10/3/uL (4.5-10.5)
[2016-07-31 07:07] LABS: CALCIUM, SERUM 7.7 MG/DL (8.5-10.4); CHLORIDE, SERUM 114 MMOL/L (96-112); CO2 (CARBON DIOXIDE) 23 MMOL/L (24-34); CREATININE 0.45 MG/DL (0.70-1.30); GFR AFRICAN AMERICAN 146 ML/MIN (>=60); GFR NON AFRICAN AMERICAN 126 ML/MIN (>=60); GLUCOSE, SERUM 121 MG/DL (60-99); PHOSPHORUS, SERUM 2.6 MG/DL (2.5-4.5); POTASSIUM, SERUM 3.8 MMOL/L (3.5-5.3); SODIUM, SERUM 146 MMOL/L (135-148)
[2016-07-31 07:09] LABS: BUN (BLOOD UREA NITROGEN) 22 MG/DL (6-23)
[2016-08-01 06:09] LABS: HEMATOCRIT 30.2 % (40.0-51.0); HEMOGLOBIN 9.9 g/dL (13.6-17.8); MEAN CORPUS HGB CONC 32.8 g/dL (32.0-36.0); MEAN CORPUSCULAR HEMOGLOB 29.6 pg (26.0-34.0); MEAN CORPUSCULAR VOLUME 90.1 fL (80-100); MEAN PLATELET VOLUME 11.6 fL (9.2-13.0); PLATELET COUNT 105 10/3/uL (150-400); RBC DISTRIBUTION WIDTH 16.9 % (12.0-16.0); RED CELL COUNT 3.35 10/6/uL (4.7-6.1); WHITE BLOOD CELLS 4.7 10/3/uL (4.5-10.5)
[2016-08-01 06:10] LABS: MANUAL DIFF YES %
[2016-08-01 06:22] LABS: CALCIUM, SERUM 7.5 MG/DL (8.5-10.4); CHLORIDE, SERUM 110 MMOL/L (96-112); CO2 (CARBON DIOXIDE) 22 MMOL/L (24-34); CREATININE 0.59 MG/DL (0.70-1.30); GFR AFRICAN AMERICAN 130 ML/MIN (>=60); GFR NON AFRICAN AMERICAN 112 ML/MIN (>=60); GLUCOSE, SERUM 116 MG/DL (60-99); PHOSPHORUS, SERUM 2.6 MG/DL (2.5-4.5); POTASSIUM, SERUM 3.8 MMOL/L (3.5-5.3); SODIUM, SERUM 141 MMOL/L (135-148)
[2016-08-01 06:23] LABS: BUN (BLOOD UREA NITROGEN) 18 MG/DL (6-23)
[2016-08-01 06:42] LABS: BAND NEUTROPHILS 32 %; EOSINOPHILS 1 %; EOSINOPHILS ABSOLUTE (CALC) 0.05 10/3/uL (0.0-0.53); LYMPHOCYTES 1 %; LYMPHOCYTES ABSOLUTE (CALC) 0.05 10/3/uL (0.67-4.30); MONOCYTES 3 %; MONOCYTES ABSOLUTE (CALC) 0.14 10/3/uL (0.21-1.20); NEUTROPHILS ABSOLUTE (CALC) 4.47 10/3/uL (2.02-8.40); PLATELET ESTIMATE SLT DEC (ADEQUATE); POLYCHROMASIA 1+ (2-5/OIF) (0-1/OIF); SEGMENTED NEUTROPHIL (0) 63 %; TOTAL NUCLEATED CELLS 100; TOXIC GRANULATION 1+
[2016-08-02 05:49] LABS: BUN (BLOOD UREA NITROGEN) 19 MG/DL (6-23); CALCIUM, SERUM 7.6 MG/DL (8.5-10.4); CHLORIDE, SERUM 110 MMOL/L (96-112); CO2 (CARBON DIOXIDE) 20 MMOL/L (24-34); CREATININE 0.47 MG/DL (0.70-1.30); GFR AFRICAN AMERICAN 143 ML/MIN (>=60); GFR NON AFRICAN AMERICAN 123 ML/MIN (>=60); GLUCOSE, SERUM 114 MG/DL (60-99); PHOSPHORUS, SERUM 2.6 MG/DL (2.5-4.5); SODIUM, SERUM 139 MMOL/L (135-148)
[2016-08-03 08:03] LABS: ALBUMIN 1.5 G/DL (3.5-5.0); BUN (BLOOD UREA NITROGEN) 18 MG/DL (6-23); CHLORIDE, SERUM 109 MMOL/L (96-112); CO2 (CARBON DIOXIDE) 21 MMOL/L (24-34); CREATININE 0.45 MG/DL (0.70-1.30); GFR AFRICAN AMERICAN 146 ML/MIN (>=60); GFR NON AFRICAN AMERICAN 126 ML/MIN (>=60); GLUCOSE, SERUM 101 MG/DL (60-99); PHOSPHORUS, SERUM 3.2 MG/DL (2.5-4.5); POTASSIUM, SERUM 4.3 MMOL/L (3.5-5.3); SGOT(AST) 47 U/L (5-40); SGPT(ALT) 65 U/L (5-65); SODIUM, SERUM 138 MMOL/L (135-148); TOTAL BILIRUBIN 0.8 MG/DL (0-1.2)
[2016-08-03 08:04] LABS: A/G RATIO 0.3 (0.7-1.9); ALKALINE PHOSPHATASE 131 U/L (45-117); GLOBULIN 4.6 G/DL (2.5-4.1); TOTAL PROTEIN 6.1 G/DL (6.0-8.5)
[2016-08-05] MEDS ORDERED: PERCOCET 7.5/321 TAB PO (09:53)
== END 2016-08-05 14:39 | disposition hospice, home (50) | DRG 853 ==
LOC: ER 11:58 → MIC 13:04 → 5SO 07-26 16:25
PROVIDERS: Family Medicine; Hospitalist; Internal Medicine Pulmonary Disease; Surgery
PROC: 0DV40ZZ Restriction of Esophagogastric Junction, Open Approach (ICD-10-PCS; principal; 2016-07-22 13:45)
PROC: 3E0336Z Introduction of Nutritional Substance into Peripheral Vein, Percutaneous Approach (ICD-10-PCS; 2016-07-23)
PROC: 30233N1 Transfusion of Nonautologous Red Blood Cells into Peripheral Vein, Percutaneous Approach (ICD-10-PCS; 2016-07-24)
PROC: 02HV33Z Insertion of Infusion Device into Superior Vena Cava, Percutaneous Approach (ICD-10-PCS; 2016-07-24)
PROC: 4A02X4A Measurement of Cardiac Electrical Activity, Guidance, External Approach (ICD-10-PCS; 2016-07-24)
DX: A41.9 Sepsis, unspecified organism (principal); K65.8 Other peritonitis; R65.21 Severe sepsis with septic shock; K22.3 Perforation of esophagus; J95.821 Acute postprocedural respiratory failure; C15.5 Malignant neoplasm of lower third of esophagus; C78.00 Secondary malignant neoplasm of unspecified lung; K92.1 Melena; C79.31 Secondary malignant neoplasm of brain; D62 Acute posthemorrhagic anemia; E44.0 Moderate protein-calorie malnutrition; Z51.5 Encounter for palliative care; Z66 Do not resuscitate; J44.9 Chronic obstructive pulmonary disease, unspecified; Z92.3 Personal history of irradiation; Z79.899 Other long term (current) drug therapy; F32.9 Major depressive disorder, single episode, unspecified; F41.9 Anxiety disorder, unspecified; Z98.890 Other specified postprocedural states; Z87.442 Personal history of urinary calculi; F17.210 Nicotine dependence, cigarettes, uncomplicated; Z80.8 Family history of malignant neoplasm of other organs or systems; Z80.42 Family history of malignant neoplasm of prostate; Z68.25 Body mass index [BMI] 25.0-25.9, adult; E11.9 Type 2 diabetes mellitus without complications; E87.6 Hypokalemia
CPT/HCPCS: 31720; 36415; 36569; 71010; 74000; 74176; 74220; 80048; 80053; 80202; 81001; 82248; 82330; 82805; 82947; 82962; 83605; 83690; 83735; 84100; 84132; 84134; 84145; 84478; 85014; 85018; 85025; 85610; 85730; 86850; 86900; 86901; 86920; 87015; 87070; 87075; 87102; 87116; 87205; 87641; 93005; 94002; 94003; 94640; 94660; 96374; 96375; 97116-GP; 97162-GP; 97530-GP; 99285; A9270-GY; C1751; C9113; J0330; J0690; J1170; J1720; J2250; J2370; J2405; J2543; J2550; J2930; J3010; J3370; J3475; P9016; P9045